=== PATIENT | female | born 1960 | race Caucasian/White ===

== ENCOUNTER 2021-11-16 21:52 | Inpatient (IN) | payer MEDICAID ==
[~2021-11-16] VITALS: Ht 162.6 cm; Wt 78.4 kg
[2021-11-16] MEDS ORDERED: SODIUM CHLORIDE 0.9% 1,000 ML IV ONE ×2 (22:30→23:00)
[2021-11-16 22:56] LABS: Basophils # (auto) 0 10 ^3/uL (0-0.2); Basophils % (auto) 0.3 % (0.0-2.0); Eosinophils # (auto) 0.1 10 ^3/uL (0-0.8); Eosinophils % (auto) 0.8 % (0.0-7.0); Hematocrit 44.9 % (36.0-46.0); Hemoglobin 15.1 g/dL (12.2-16.2); Lymphocytes # (auto) 1.5 10 ^3/uL (0.4-5.4); Lymphocytes % (auto) 10.5 % (10.0-50.0); Mean Corpuscular Hemoglobin 30.2 pg (28.0-32.0); Mean Corpuscular Hgb Conc. 33.6 g/dL (32.0-36.0); Monocytes # (auto) 1.6 10 ^3/uL (0-1.3); Monocytes % (auto) 11.3 % (0.0-12.0); Neutrophils # (auto) 11.1 10 ^3/uL (1.6-8.6); Neutrophils % (auto) 77.1 % (37.0-80.0); Red Blood Cells 4.99 10^6/uL (4.0-5.20); Red Cell Distribution Width 13.4 % (11.8-14.3); White Blood Cell 14.4 10^3/uL (4.4-10.8)
[2021-11-16 22:59] LABS: Albumin 3.2 g/dL (3.4-5.0); Calcium 10.9 mg/dL (8.5-10.1); Potassium 4.4 mmol/L (3.5-5.1)
[2021-11-16 23:02] LABS: BUN/Creatinine Ratio 15.9; Bilirubin, Total 0.6 mg/dL (0.2-1.0); Total Protein 8.6 g/dL (6.4-8.2)
[2021-11-16 23:06] LABS: Lactic Acid w/Reflex 2.1 mmol/L (0.4-2.0)
[2021-11-17 00:04] LABS: Urine Bacteria NONE SEEN /hpf (None Seen); Urine Blood Negative /uL (Negative); Urine Hyaline Cast MANY /lpf (0 - 2); Urine Mucus FEW (None Seen); Urine Specific Gravity 1.028 (1.001-1.035); Urine WBC 11 /hpf (0 - 5)
[2021-11-17] MEDS ORDERED: IPRATROPIUM BROM 0.5 MG/2.5ML INH SOL ONE (00:07)
[2021-11-17] MEDS ORDERED: ALBUTEROL SULF 2.5 MG/0.5ML(0.5%) NEB SOLN ONE (00:07)
[2021-11-17] MEDS ORDERED: methylPREDNISolone SOD SUCC 125 MG/2 ML VL IV ONE (01:15)
[2021-11-17] MEDS: IPRATROPIUM BROM 0.5 MG/2.5ML INH SOL NEB PRN ×3 (01:28→01:30)
[2021-11-17] MEDS: ALBUTEROL SULF 2.5 MG/0.5ML(0.5%) NEB SOLN NEB PRN ×2 (01:29→01:30)
[2021-11-17] MEDS ORDERED: ASPirin 325 MG TAB PO ONE (01:45)
[2021-11-17] MEDS ORDERED: ACETAMINOPHEN 325 MG TAB PO PRN (03:00)
[2021-11-17] MEDS ORDERED: HYDROcodone-ACET 5/325MG TAB PO PRN (03:00)
[2021-11-17 03:42] VITALS: BP 116/82
[2021-11-17] MEDS: HEPARIN SODIUM (PORCINE) 5000 UNITS/ML 1ML VIAL SC SCH ×3 (03:58→21:50)
[2021-11-17 04:06] LABS: BUN/Creatinine Ratio 21.1; Calcium 9.5 mg/dL (8.5-10.1); Potassium 4.1 mmol/L (3.5-5.1)
[2021-11-17] MEDS: IPRATROPIUM BROM 0.5 MG/2.5ML INH SOL NEB SCH ×3 (05:43→18:50)
[2021-11-17] MEDS: ALBUTEROL SULF 2.5 MG/0.5ML(0.5%) NEB SOLN NEB SCH ×3 (05:43→18:49)
[2021-11-17] MEDS: PIPERACILLIN-TAZOB 3.375GM 100 ML IV SCH ×3 (05:48→23:39)
[2021-11-17 06:42] LABS: BUN/Creatinine Ratio 21.7; Calcium 9.6 mg/dL (8.5-10.1); Potassium 4.2 mmol/L (3.5-5.1)
[2021-11-17] MEDS ORDERED: MORPHINE SULFATE INJ 2 MG/ml SYRG IV PRN (08:00)
[2021-11-17] MEDS ORDERED: DEXTROSE (50%) 50ML SYRG IV PRN (08:00)
[2021-11-17] MEDS ORDERED: NITROGLYCERIN 0.4 MG SL TAB SL PRN (08:00)
[2021-11-17] MEDS: ASPirin 81 mg TAB PO SCH (11:24)
[2021-11-17] MEDS: ACCU-CHEK COMFORT CURVE STRIP VI SCH ×3 (11:47→21:50)
[2021-11-17] MEDS: InsuLIN REG 1unit/0.01ml Soln (100units/ml) SC SCH ×3 (11:56→21:59)
[2021-11-17] MEDS: methylPREDNISolone SOD SUCC 40 MG/ML VL IV SCH ×2 (16:43→21:21)
[2021-11-17 17:40] VITALS: BP 171/77
[2021-11-17] MEDS ORDERED: LABETALOL HCL 5 MG/ML 4ML SYRINGE IV ONE (19:00)
[2021-11-17] MEDS ORDERED: diphenhdrAMINE HCL 50 MG/1 ML VL IV ONE (22:15)
[2021-11-18] VITALS (7 sets, daily range): BP systolic 138–178; BP diastolic 71–90
[2021-11-18 04:56] LABS: Basophils # (auto) 0 10 ^3/uL (0-0.2); Eosinophils # (auto) 0 10 ^3/uL (0-0.8); Hematocrit 34.7 % (36.0-46.0); Hemoglobin 11.7 g/dL (12.2-16.2); Lymphocytes # (auto) 0.7 10 ^3/uL (0.4-5.4); Lymphocytes % (auto) 5.4 % (10.0-50.0); Mean Corpuscular Hemoglobin 30.1 pg (28.0-32.0); Mean Corpuscular Hgb Conc. 33.7 g/dL (32.0-36.0); Mean Corpuscular Volume 89.3 fL (80.0-100.0); Monocytes # (auto) 0.9 10 ^3/uL (0-1.3); Monocytes % (auto) 7.3 % (0.0-12.0); Neutrophils # (auto) 10.7 10 ^3/uL (1.6-8.6); Neutrophils % (auto) 87.3 % (37.0-80.0); Red Blood Cells 3.88 10^6/uL (4.0-5.20); Red Cell Distribution Width 13.4 % (11.8-14.3); White Blood Cell 12.2 10^3/uL (4.4-10.8)
[2021-11-18 05:13] LABS: BUN/Creatinine Ratio 31.1; Calcium 10.7 mg/dL (8.5-10.1); Potassium 4.7 mmol/L (3.5-5.1)
[2021-11-18] MEDS: methylPREDNISolone SOD SUCC 40 MG/ML VL IV SCH ×3 (05:50→21:47)
[2021-11-18] MEDS: InsuLIN REG 1unit/0.01ml Soln (100units/ml) SC SCH ×4 (06:07→22:13)
[2021-11-18] MEDS: ACCU-CHEK COMFORT CURVE STRIP VI SCH ×4 (06:07→22:12)
[2021-11-18] MEDS: PIPERACILLIN-TAZOB 3.375GM 100 ML IV SCH ×3 (06:07→21:47)
[2021-11-18] MEDS: IPRATROPIUM BROM 0.5 MG/2.5ML INH SOL NEB SCH ×3 (07:32→18:35)
[2021-11-18] MEDS: ALBUTEROL SULF 2.5 MG/0.5ML(0.5%) NEB SOLN NEB SCH ×3 (07:32→18:35)
[2021-11-18] MEDS: ASPirin 81 mg TAB PO SCH (09:35)
[2021-11-18] MEDS: HEPARIN SODIUM (PORCINE) 5000 UNITS/ML 1ML VIAL SC SCH ×2 (09:40→21:48)
[2021-11-18] MEDS ORDERED: METF-371 PO (11:43)
[2021-11-18] MEDS ORDERED: LISI20TA28 PO (11:43)
[2021-11-18] MEDS ORDERED: ZOLPIDEM TARTRATE 5 MG TAB PO PRN (13:00)
[2021-11-18] MEDS ORDERED: LACTULOSE 20Gm/30ML SOLN PO PRN (13:00)
[2021-11-18] MEDS ORDERED: LISINOPRIL 20 MG TAB PO ONE (16:30)
[2021-11-18] MEDS ORDERED: cloNIDine HCL 0.1 MG TAB PO PRN (16:30)
[2021-11-18] MEDS: FLUTICASONE PROP NASAL SPR 0.05 % (50MCG) 16GM EACHNOSTRI SCH (22:00)
[2021-11-18] MEDS ORDERED: FAMOTIDINE 20 MG TAB PO SCH (22:00)
[2021-11-18] MEDS ORDERED: LABETALOL HCL 5 MG/ML 4ML SYRINGE IV ONE (23:00)
[2021-11-19] MEDS ORDERED: LABETALOL HCL 5 MG/ML 4ML SYRINGE IV ONE (00:15)
[2021-11-19] MEDS: IPRATROPIUM BROM 0.5 MG/2.5ML INH SOL NEB SCH ×3 (00:26→11:48)
[2021-11-19] MEDS: ALBUTEROL SULF 2.5 MG/0.5ML(0.5%) NEB SOLN NEB SCH ×3 (00:26→11:48)
[2021-11-19 05:00] VITALS: BP 158/84
[2021-11-19] MEDS: PIPERACILLIN-TAZOB 3.375GM 100 ML IV SCH ×2 (06:34→14:00)
[2021-11-19] MEDS: methylPREDNISolone SOD SUCC 40 MG/ML VL IV SCH ×2 (06:34→14:00)
[2021-11-19] MEDS: ACCU-CHEK COMFORT CURVE STRIP VI SCH ×2 (06:34→11:38)
[2021-11-19] MEDS: InsuLIN REG 1unit/0.01ml Soln (100units/ml) SC SCH ×2 (06:37→11:41)
[2021-11-19 07:00] VITALS: BP 148/82
[2021-11-19 07:38] VITALS: BP 146/82
[2021-11-19 08:29] VITALS: BP 146/82
[2021-11-19] MEDS: FLUTICASONE PROP NASAL SPR 0.05 % (50MCG) 16GM EACHNOSTRI SCH (09:09)
[2021-11-19] MEDS: ASPirin 81 mg TAB PO SCH (09:10)
[2021-11-19] MEDS: HEPARIN SODIUM (PORCINE) 5000 UNITS/ML 1ML VIAL SC SCH (09:13)
[2021-11-19] MEDS ORDERED: LISINOPRIL 20 MG TAB PO SCH (10:00)
[2021-11-19 10:51] LABS: BUN/Creatinine Ratio 25.7; Calcium 10.6 mg/dL (8.5-10.1); Potassium 4.5 mmol/L (3.5-5.1)
[2021-11-19 12:34] VITALS: BP 147/82
[2021-11-19] MEDS ORDERED: ALB5IS NEB (13:20)
[2021-11-19] MEDS ORDERED: FLUT50SP EACHNOSTRI (13:20)
[2021-11-19] MEDS ORDERED: AZIT500T66 PO (13:20)
[2021-11-19] MEDS ORDERED: PRED20TA2 PO (13:20)
[2021-11-19] MEDS ORDERED: IPR002IS NEB (13:20)
[2021-11-19 14:12] VITALS: BP 147/82
== END 2021-11-19 15:49 | disposition home or self-care (01) | DRG 133 ==
LOC: EDBD 21:52 → ER 21:52 → TELE 11-17 07:58 → TELE-WESTW 11-17 17:20
PROVIDERS: ADMIT Nurse Practitioner Family; ATTEND Internal Medicine
DX: J96.01 Acute respiratory failure with hypoxia (principal); N17.9 Acute kidney failure, unspecified; J44.0 Chronic obstructive pulmonary disease with (acute) lower respiratory infection; I95.9 Hypotension, unspecified; J45.901 Unspecified asthma with (acute) exacerbation; J44.1 Chronic obstructive pulmonary disease with (acute) exacerbation; E11.22 Type 2 diabetes mellitus with diabetic chronic kidney disease; Z99.81 Dependence on supplemental oxygen; E11.9 Type 2 diabetes mellitus without complications; J20.9 Acute bronchitis, unspecified; F17.210 Nicotine dependence, cigarettes, uncomplicated; H53.8 Other visual disturbances; R77.8 Other specified abnormalities of plasma proteins; I12.9 Hypertensive chronic kidney disease with stage 1 through stage 4 chronic kidney disease, or unspecified chronic kidney disease; N18.9 Chronic kidney disease, unspecified; Z20.822 Contact with and (suspected) exposure to COVID-19; Z79.4 Long term (current) use of insulin
CPT/HCPCS: 36415; 36600; 71045; 78582; 80048; 80053; 80061; 81001; 82805; 82962; 83605; 84484; 85025; 85379; 87040; 93005; 93306; 93970; 94010; 94640; 96361; 96372; 96374; G0378; J1815; J2543

== ENCOUNTER 2024-07-10 17:52 | Inpatient (IN) | payer MEDICAID ==
[~2024-07-10] VITALS: Ht 149.9 cm; Wt 75.9 kg
[~2024-07-10 17:52] MED LIST: ALB5IS NEB; AZIT500T66 PO; FLUT50SP EACHNOSTRI; IPR002IS NEB; LISI20TA56 PO; METF-371 PO; PRED20TA2 PO
--- NOTE | 2024-07-10 18:58 | ECG ---
[facility] Test Date: 2024-07-10 Test Time: 18:32:26 Pat Name: TAYLA HERNÁNDEZ Department: E Room: [facility] Gender: F Parts Counter Specialist: II : 1960 Requested By: AJITH COON Order Number: [id number] Reading MD: Errol Flynn Measurements Intervals [place] Rate: 78 P: 41 HI: 171 QRS: -20 QRSD: 77 T: 63 QT: 358 QTc: 408 Interpretive Statements Sinus rhythm Borderline left axis deviation Low voltage, precordial leads Electronically Signed On 07-19-2024 14:20:47 PST by Errol Flynn Please click the below link to view image of tracing.
[2024-07-10 19:33] LABS: Urine Bacteria None Seen /hpf (None Seen)
--- NOTE | 2024-07-10 19:34 | ED.PDOC ---
History of Present Illness HPI Comments 63F presents to the ER w/ no prior Hx associated to the c/c of ABD pain. Pt reports that she has been having RUQ pain which radiates to the back for 1 month but the pain comes and goes, worsening w/ food. PMHx of DM, HTN and Asthma. Denies chills, fever, N/V/D, SOB, CPor other associated symptom's, modifiers, or recent injuries or sick contact at this time. Chief Complaint: Abdominal Pain Time Seen by MD: 19:00 Primary Care Provider: DOMINGAK Reviewed Notes: Nurses Notes, Medications, Allergies Allergies: Coded Allergies: NO KNOWN ALLERGIES (Unverified , 11/16/21) Home Meds Active Scripts Prednisone (Prednisone) 20 Mg Tab, 20 MG PO BIDBRS, #10 MG Prov:LAWANDA AUSTIN MD 11/19/21 Azithromycin (Azithromycin) 500 Mg Tab, 500 MG PO DAILY, #5 TAB Prov:LAWANDA AUSTIN MD 11/19/21 Ipratropium [place] (Ipratropium [place]) 0.02 % Keiko, 0.5 MG NEB Q6HR PRN, #30 VIAL Prov:LAWANDA AUSTIN MD 11/19/21 Fluticasone Propionate (Nasal) (Fluticasone Propionate) 50 Mcg/Act Spr, 50 MCG E ACHNOSTRI Q12HR, #1 SPRAY Prov:LAWANDA AUSTIN MD 11/19/21 Albuterol Sulfate (Ventolin) 2.5 Mg/0.5 Ml Nb, 2.5 MG NEB Q6HR PRN, #30 INH Prov:LAWANDA AUSTIN MD 11/19/21 Reported Medications Lisinopril (Lisinopril) 20 Mg Tab, 20 MG PO DAILY for 30 Days, MG 11/18/21 Metformin Hydrochloride (Metformin Hcl) 850 Mg Tab, 1 TAB PO BID, #60 TAB 5 Refills 11/18/21 Information Source: Patient Mode of Arrival: Ambulatory Severity: Moderate Timing: Weeks Duration: Since onset Prehospital treatment: None Past Medical History PAST MEDICAL HISTORY: Asthma, DM, HTN Surgical History: Denies all surgeries PATENT LAWYER History: No Pertinent PATENT LAWYER History Family History Family History: Reviewed,noncontributory to illness, Unknown Social History Smoker: Non-Smoker Alcohol: Denies ETOH Use Drugs: Denies Drug Use Lives In: Home Constitutional: denies: chills, diaphoresis, fatigue, fever, malaise, sweats, weakness, others EENTM: denies: blurred vision, double vision, ear bleeding, ear discharge, ear drainage, ear pain, ear ringing, eye pain, eye redness, hearing loss, mouth pain, mouth swelling, nasal discharge, nose bleeding, nose congestion, nose pain, photophobia, tearing, throat pain, throat swelling, voice changes, others Respiratory: denies: cough, hemoptysis, orthopnea, SOB at rest, shortness of breath, SOB with excertion, stridor, wheezing, others Cardiovascular: denies: chest pain, dizzy spells, diaphoresis, Dyspnea on exertion, edema, irregular heart beat, left arm pain, lightheadedness, palpitations, PND, syncope, others Gastrointestinal: reports: abdominal pain; denies: abdomen distended, blood streaked bowels, constipated, diarrhea, dysphagia, difficulty swallowing, hematemesis, melena, nausea, poor appetite, poor fluid intake, rectal bleeding, rectal pain, vomiting, others Genitourinary: denies: abnormal vagina bleeding, burning, dyspareunia, dysuria, flank pain, frequency, hematuria, incontinence, pain, , vagina discharge, urgency, others Neurological: denies: dizziness, fainting, headache, left sided numbness, left sided weakness, numbness, paresthesia, pre-existing deficit, right sided numbness, right sided weakness, seizure, speech problems, tingling, tremors, weakness, others Musculoskeletal: denies: back pain, gout, joint pain, joint swelling, muscle pain, muscle stiffness, neck pain, others Integumetry: denies: bruises, change in color, change in hair/nails, dryness, laceration, lesions, lumps, rash, wounds, others Allergic/Immunocompromised: denies: Difficulty Healing, Frequent Infections, Hives, Itching, others Hematologic/Lymphatic: denies: anemia, blood clots, easy bleeding, easy bruising, swollen glands, others Endocrine: denies: excessive hunger, excessive sweating, excessive thirst, excessive urination, flushing, intolerance to cold, intolerance to heat, unexplained weight gain, unexplained weight loss, others Psychiatric: denies: anxiety, bipolar disorder, depression, hopeless, panic disorder, schizophrenia, sleepless, suicidal, others All Other Systems: Reviewed and Negative Physical Exam Exam Comments left epigastric area is tender General Appearance: No Apparent Distress, Normal HEENT: Normal ENT Inspection, Pharynx Normal, TMs Normal Neck: Full Range of Motion, Non-Tender, Normal, Normal Inspection Respiratory: Chest Non-Tender, Lungs Clear, No Accessory Muscle Use, No Respiratory Distress, Normal Breath Sounds Cardiovascular: No Edema, No JVD, No Murmur, No Gallop, Normal Peripheral Pulses, Regular Rate/Rhythm Breast Exam: Deferred Gastrointestinal: No Organomegaly, Non Tender, No Pulsatile Mass, Normal Bowel Sounds, Soft Genitalia: Deferred Pelvic: Deferred Rectal: Deferred Extremities: No calf tenderness, Normal capillary refill, Normal inspection, Normal range of motion, Non-tender, No pedal edema Musculoskeletal : Apperance: Normal Neurologic: Alert, double surface operator II-XII nml as Tested, No Motor Deficits, Normal Affect, Normal Mood, No Sensory Deficits Cerebellar Function: Normal Reflexes: Normal Skin: Dry, Normal Color, Warm Lymphatic: No Adenopathy Was a procedure done? Was a procedure done?: No Differential Dx Considerations may include: biliary colic, pancreatitis, gastritis, sbo, colitis X-Ray, Labs, Meds, VS Vital Signs Date Time Temp Pulse Resp B/P (MAP) Pulse Ox O2 Delivery O2 Flow Rate FiO2 07/10/24 21:25 99.0 73 18 122/72 (89) 96 99.0 07/10/24 21:21 73 16 122/72 07/10/24 20:54 78 22 154/75 07/10/24 20:23 78 22 99 Room Air* 0 21 07/10/24 20:21 99.0 78 22 154/77 (102) 99 99.0 07/10/24 18:39 78 07/10/24 18:29 97.8 76 18 111/70 (84) 96 Lab Test 07/10/24 19:47 07/10/24 18:25 Range/Units White Blood Count 10.3 4.4-10.8 10^3/uL Red Blood Count 4.17 4.0-5.20 10^6/uL Hemoglobin 12.9 12.2-16.2 g/dL Hematocrit 38.5 36.0-46.0 % Mean Corpuscular Volume 92.4 80.0-100.0 fL Mean Corpuscular Hemoglobin 31.0 28.0-32.0 pg Mean Corpuscular Hemoglobin Concent 33.5 32.0-36.0 g/dL Red Cell Distribution Width 14.0 11.8-14.3 % Platelet Count 228 140-450 10^3/uL Mean Platelet Volume 7.6 6.9-10.8 fL Neutrophils (%) (Auto) 61.3 37.0-80.0 % Lymphocytes (%) (Auto) 22.3 10.0-50.0 % Monocytes (%) (Auto) 12.1 H 0.0-12.0 % Eosinophils (%) (Auto) 3.6 0.0-7.0 % Basophils (%) (Auto) 0.7 0.0-2.0 % Neutrophils # (Auto) 6.3 1.6-8.6 10 ^3/uL Lymphocytes # (Auto) 2.3 0.4-5.4 10 ^3/uL Monocytes # (Auto) 1.2 0-1.3 10 ^3/uL Eosinophils # (Auto) 0.4 0-0.8 10 ^3/uL Basophils # (Auto) 0.1 0-0.2 10 ^3/uL Nucleated Red Blood Cells 0.0 % Sodium Level 138 136-145 mmol/L Potassium Level 4.8 3.5-5.1 mmol/L Chloride Level 106 98-107 mmol/L Carbon Dioxide Level 23 20-31 mmol/L Anion Gap 9 5-15 Blood Urea Nitrogen 44 H 9-23 mg/dL Creatinine 1.80 H 0.550-1.02 mg/dL Glomerular Filtration Rate Calc 31 >90 mL/min BUN/Creatinine Ratio 24.4 H 10.0-20.0 Serum Glucose 104 74-106 mg/dL Calcium Level 11.5 H 8.7-10.4 mg/dL Total Bilirubin 0.3 0.2-1.0 mg/dL Aspartate Amino Transferase (AST) 26 13-40 U/L Alanine Aminotransferase (ALT) 37 7-40 U/L Alkaline Phosphatase 144 H 46-116 U/L Total Protein 7.8 5.7-8.2 g/dL Albumin 4.7 3.2-4.8 g/dL Lipase 32 12-53 U/L Urine Color Yellow Yellow Urine Clarity Clear Clear Urine pH 5.0 5.0-9.0 Urine Specific [place] 1.017 1.001-1.035 Urine Protein Trace H Negative Urine Ketones Negative Negative Urine Blood Negative Negative /uL Urine Nitrite Negative Negative Urine Bilirubin Negative Negative Urine Urobilinogen Normal Negative mg/dL Urine Leukocyte Esterase 2+ Negative /uL Urine RBC 3 0 - 4 /hpf Urine WBC 20 0 - 5 /hpf Urine Squamous Epithelial Cells Few <5 /hpf Urine Bacteria None seen None Seen /hpf Urine Hyaline Casts Few 0 - 2 /lpf Urine Mucus Few None Seen Urine Glucose 2+ H Normal mg/dL Current Medications Medications (Trade) Dose Ordered Sig/Yon Route Start Time Stop Time Status Last Admin Morphine Sulfate 2 mg ONCE ONCE IV 07/10/24 19:15 07/10/24 19:16 DC 07/10/24 20:54 Ondansetron HCl (Zofran) 4 mg ONCE ONCE IV 07/10/24 19:15 07/10/24 19:16 DC 07/10/24 20:55 Time of 1ST Reevaluation: 19:30 Reevaluation 1ST: Unchanged Time of 2ND Reevaluation: 20:34 Reevaluation 2ND: pt eloped Patient Education/Counseling: Diagnosis, Treatment, Prognosis Family Education/Counseling: No Family Present Additional Information - I reviewed the following notes from patient's past medical encounters:11/16/21 - The following tests were ordered, and results were reviewed by me: PHA, LAB, US, EKG - I reviewed and agreed with the following test results read by other provider: US - I discussed treatments and results with medical personnel and: (consultants, family) i suspect biliary colic. an US was ordered. however, pt eloped before this can be done Departure 1 Departure Time of Disposition: 20:34 Impression: Primary Impression: Biliary colic symptom Additional Impressions: Renal insufficiency UTI (urinary tract infection) Qualified Codes: N30.00 - Acute cystitis without hematuria Disposition: HOME / SELF CARE / HOMELESS Condition: Good e-Prescriptions Cephalexin Monohydrate (Cephalexin) 500 Mg Tab 1 TAB PO QID, #40 TAB Prov: AJITH COON MD 07/10/24 Pantoprazole Sodium Sesquihydr (Protonix) 40 Mg Tab 40 MG PO DAILY, #30 TAB Prov: AJITH COON MD 07/10/24 Discharged With: Self Critical Care Note Critical Care Time?: No Stability Stability form required: No I personally scribed for AJITH COON MD ([email or web address]) on 07/10/24 at 19:34. Electronically submitted by Pierre Keller ([email or web address]). AJITH COON MD Jul 10, 2024 19:34
[2024-07-10 19:57] LABS: Urine Blood Negative /uL (Negative); Urine Clarity Clear (Clear); Urine Color Yellow (Yellow); Urine Hyaline Cast FEW /lpf (0 - 2); Urine Mucus FEW (None Seen); Urine Protein, UAD TRACE (Negative); Urine Specific Gravity 1.017 (1.001-1.035); Urine Squamous Epithelial Cell FEW /hpf (<5); Urine Urobilinogen Normal (Negative); Urine WBC 20 /hpf (0 - 5)
[2024-07-10 20:08] LABS: Basophils # (auto) 0.1 10 ^3/uL (0-0.2); Basophils % (auto) 0.7 % (0.0-2.0); Eosinophils # (auto) 0.4 10 ^3/uL (0-0.8); Eosinophils % (auto) 3.6 % (0.0-7.0); Hematocrit 38.5 % (36.0-46.0); Hemoglobin 12.9 g/dL (12.2-16.2); Lymphocytes # (auto) 2.3 10 ^3/uL (0.4-5.4); Lymphocytes % (auto) 22.3 % (10.0-50.0); Mean Corpuscular Hgb Conc. 33.5 g/dL (32.0-36.0); Mean Corpuscular Volume 92.4 fL (80.0-100.0); Monocytes # (auto) 1.2 10 ^3/uL (0-1.3); Monocytes % (auto) 12.1 % (0.0-12.0); Neutrophils # (auto) 6.3 10 ^3/uL (1.6-8.6); Neutrophils % (auto) 61.3 % (37.0-80.0); Platelet Count (auto) 228 10^3/uL (140-450); Red Blood Cells 4.17 10^6/uL (4.0-5.20); White Blood Cell 10.3 10^3/uL (4.4-10.8)
[2024-07-10 20:23] VITALS: PULSE 78; RESP 22; O2SAT 99
[2024-07-10 20:26] LABS: Alanine Aminotransferase 37 U/L (7-40); Albumin 4.7 g/dL (3.2-4.8); Alkaline Phosphatase 144 U/L (46-116); Anion Gap 9 (5-15); Aspartate Aminotransferase 26 U/L (13-40); BUN/Creatinine Ratio 24.4 (10.0-20.0); Bilirubin, Total 0.3 mg/dL (0.2-1.0); Blood Urea Nitrogen 44 mg/dL (9-23); Calcium 11.5 mg/dL (8.7-10.4); Carbon Dioxide 23 mmol/L (20-31); Chloride 106 mmol/L (98-107); Glucose 104 mg/dL (74-106); Lipase 32 U/L (12-53); Potassium 4.8 mmol/L (3.5-5.1); Sodium 138 mmol/L (136-145); Total Protein 7.8 g/dL (5.7-8.2)
[2024-07-10] MEDS: MORPHINE SULFATE INJ 2 MG/ml SYRG IV ONE (20:54)
[2024-07-10] MEDS: ONDANSETRON HCL 4 MG/2 ML VIAL IV ONE (20:55)
--- NOTE | 2024-07-10 21:03 | DVH ---
INDICATION: ruq pain TECHNIQUE: Multiple real-time sonographic images of the abdomen were obtained. COMPARISON: None FINDINGS: Liver is homogenous in echogenicity. The liver measures 14.3 cm. No intrahepatic biliary ductal dilatation is noted. The gallbladder wall measures 0.3 cm and is unremarkable. No gallstones or gallbladder sludge. No pericholecystic fluid or edema. The common duct measures 0.4 cm and is unremarkable. The right kidney measures 6.7 cm. No hydronephrosis. The pancreas is not well visualized due to obscuration from bowel gas. The visualized portions of the IVC and aorta are grossly unremarkable. IMPRESSION: 1. No cholelithiasis or cholecystitis. No acute findings identified.
[2024-07-10] MEDS ORDERED: CEPH500T PO (21:30)
[2024-07-10] MEDS ORDERED: PANT40TA2 PO (21:30)
--- NOTE | 2024-07-10 21:59 | DVHHPRES ---
History of Present Illness Resident Creating Document: ESTEFANY ROGERS RESIDENT History of Present Illness This is a 63-year-old female past medical history of bronchial asthma, hypertension, type 2 diabetes mellitus presented to the ED with a chief complaint of right upper abdominal pain with nausea and vomiting for 2 days prio r to this admission. The patient states that right upper abdominal pain started 1 month ago, intermittent in nature, 7 / 10, radiate diffusely through the abdomen sometimes to the right shoulder aggravated with fatty meal or sometimes just after meal without any relieving factor and associated with nausea and vomiting. She also mentioned that for last 2 days abdominal pain getting worse and she had few episodes of vomiting and currently she felt nauseous that prompted this visit. The patient also complains of frequency and discomfort during urination and she had an UTI 2 years ago currently feeling the same symptoms as she had before. The patient denies chest pain, shortness of breath, dizziness, hematuria, sick hematochezia, hemoptysis or any change bowel and bladder habit. Past Medical History Bronchial asthma, hypertension, type 2 diabetes mellitus Past Surgical History , cataract surgery Family History None Past Social History Lives with daughter. Remote smoking history, occasional drinker and never tried any drugs. Review of Systems Constitutional: No: Fever, Chills, Sweats, Weakness, Malaise, Other Eyes: No: Pain, Vision change, Conjunctivae inflammation, Eyelid inflammation, Other, Redness ENT: No: Ear pain, Ear discharge, Nose pain, Nose discharge, Nose congestion, Mouth pain, Mouth swelling, Throat pain, Throat swelling, Other Respiratory: No: Cough, Dry, Shortness of breath, SOB with excertion, Wheezing, Hemoptysis, Pleuritic Pain, Sputum, Wheezing, Other Cardiovascular: No: Chest Pain, Palpitations, Orthopnea, Paroxysmal Noc. Dyspnea, Edema, Lt Headedness, Other Gastrointestinal: Nausea, Vomiting, Abdominal Pain; No: Diarrhea, Constipation, Melena, Hematochezia, Other Genitourinary: No Dysuria, No Frequency, No Incontinence, No Hematuria, No Retention, No Other Musculoskeletal: No: other, neck pain, shoulder pain, arm pain, back pain, hand pain, leg pain, foot pain Skin: No: Rash, Lesions, Jaundice, Bruising, Other Neurological: No: Weakness, Numbness, Incoordination, Change in speech, Confusion, Seizures, Other Allergies: Coded Allergies: NO KNOWN ALLERGIES (Unverified , 11/16/21) Exam Vital Signs Vital Signs Date Time Temp Pulse Resp B/P (MAP) Pulse Ox O2 Delivery O2 Flow Rate FiO2 07/10/24 21:25 99.0 73 18 122/72 (89) 96 99.0 07/10/24 20:23 Room Air* 0 21 Exam Physical examination: General Appearance: Alert, Oriented X3, Cooperative, No acute distress HEENT: Atraumatic, PERRLA, EOMI, Mucous membrane moist/pink Respiratory: Clear to auscultation, Normal air movement Cardiovascular: Regular rate, Normal S1, Normal S2, No murmurs, no chest wall tenderness Abdominal: Normal bowel sounds, Soft, No tenderness, No hepatospenomegaly, No masses Extremities: No clubbing, No cyanosis, No edema, Normal pulses, No tenderness/swelling Skin: No rashes, No breakdown, No significant lesion Neuro: Normal gait, Normal speech, Strength at 5/5 X4 ext, Normal tone, Sensation intact, grossly intact cranial nerves. Psych/Mental Status: Mental status NL, Mood NL Labs/Xrays Labs Test 07/10/24 19:47 07/10/24 18:25 Range/Units White Blood Count 10.3 4.4-10.8 10^3/uL Red Blood Count 4.17 4.0-5.20 10^6/uL Hemoglobin 12.9 12.2-16.2 g/dL Hematocrit 38.5 36.0-46.0 % Mean Corpuscular Volume 92.4 80.0-100.0 fL Mean Corpuscular Hemoglobin 31.0 28.0-32.0 pg Mean Corpuscular Hemoglobin Concent 33.5 32.0-36.0 g/dL Red Cell Distribution Width 14.0 11.8-14.3 % Platelet Count 228 140-450 10^3/uL Mean Platelet Volume 7.6 6.9-10.8 fL Neutrophils (%) (Auto) 61.3 37.0-80.0 % Lymphocytes (%) (Auto) 22.3 10.0-50.0 % Monocytes (%) (Auto) 12.1 H 0.0-12.0 % Eosinophils (%) (Auto) 3.6 0.0-7.0 % Basophils (%) (Auto) 0.7 0.0-2.0 % Neutrophils # (Auto) 6.3 1.6-8.6 10 ^3/uL Lymphocytes # (Auto) 2.3 0.4-5.4 10 ^3/uL Monocytes # (Auto) 1.2 0-1.3 10 ^3/uL Eosinophils # (Auto) 0.4 0-0.8 10 ^3/uL Basophils # (Auto) 0.1 0-0.2 10 ^3/uL Nucleated Red Blood Cells 0.0 % Sodium Level 138 136-145 mmol/L Potassium Level 4.8 3.5-5.1 mmol/L Chloride Level 106 98-107 mmol/L Carbon Dioxide Level 23 20-31 mmol/L Anion Gap 9 5-15 Blood Urea Nitrogen 44 H 9-23 mg/dL Creatinine 1.80 H 0.550-1.02 mg/dL Glomerular Filtration Rate Calc 31 >90 mL/min BUN/Creatinine Ratio 24.4 H 10.0-20.0 Serum Glucose 104 74-106 mg/dL Calcium Level 11.5 H 8.7-10.4 mg/dL Total Bilirubin 0.3 0.2-1.0 mg/dL Aspartate Amino Transferase (AST) 26 13-40 U/L Alanine Aminotransferase (ALT) 37 7-40 U/L Alkaline Phosphatase 144 H 46-116 U/L Total Protein 7.8 5.7-8.2 g/dL Albumin 4.7 3.2-4.8 g/dL Lipase 32 12-53 U/L Urine Color Yellow Yellow Urine Clarity Clear Clear Urine pH 5.0 5.0-9.0 Urine Specific [place] 1.017 1.001-1.035 Urine Protein Trace H Negative Urine Ketones Negative Negative Urine Blood Negative Negative /uL Urine Nitrite Negative Negative Urine Bilirubin Negative Negative Urine Urobilinogen Normal Negative mg/dL Urine Leukocyte Esterase 2+ Negative /uL Urine RBC 3 0 - 4 /hpf Urine WBC 20 0 - 5 /hpf Urine Squamous Epithelial Cells Few <5 /hpf Urine Bacteria None seen None Seen /hpf Urine Hyaline Casts Few 0 - 2 /lpf Urine Mucus Few None Seen Urine Glucose 2+ H Normal mg/dL Assessment/Plan Assessment/Plan Assessment and plan: # Intractable abdominal pain, nausea and vomiting - CT abdomen pelvis revealed normal study - Ultrasound gallbladder revealed no cholelithiasis or any sign of acute cholecystitis - Morphine 2 mg IV once - Ondansetron 4 mg IV once - Clear liquid diet. # CATHIE likely secondary to hemodynamically mediated/VMN # Hypercalcemia likely due to dehydration - IV normal saline at 100 mL/hours - Ordered urine sodium, urine creatinine and urine protein to calculate FENa - Monitor BMP # Acute cystitis - U/A demonstrated pyuria and patient is symptomatic - Ordered urine bacterial culture - IV ceftriaxone 1 gm daily. # Type 2 diabetes mellitus, HbA1C 7.1% - Mild sliding scale of insulin # PUD prophylaxis - Pepcid 20 mg p.o daily # DVT prophylaxis - Lovenox 30 mg SC daily Goal of care discussed with the patient for more than 20 minutes full code Plan discussed with Dr. Kaur Plan discussed with: Patient, Other My Orders Orders - ESTEFANY ROGERS Procedure Category Date Status Time Admit ADMIT 07/10/24 Transmitted 21:50 Ct Ab Pel Wo Con-No CT 07/10/24 Logged Oral Or Iv 21:53 Date of Service: Jul 10, 2024 Billing Provider: DANYELL KAUR MD Common Visit Codes: [id number] INP/OBS CARE (HIGH) ESTEFANY ROGERS Jul 10, 2024 21:59 DANYELL KAUR MD Jul 13, 2024 11:46
[2024-07-10] MEDS: SODIUM CHLORIDE 0.9% 1,000 ML IV ONE (22:15)
--- NOTE | 2024-07-10 22:44 | DVH ---
Exam: CT CT AB PEL WO CON-NO ORAL OR IV History: Abdominal pain Comparison Study: None available at time of dictation. TECHNIQUE: Multidetector CT of the abdomen was performed from lung bases to pubic symphysis. Imaging was performed without IV contrast. Axial, coronal and sagittal multiplanar reformats were obtained fr om the axial data set by the technologist. Radiation Dose Information: CT Dose: CTDI volume is 9.32 mGy. Dose-length product is 475.7 mGy*cm FINDINGS: Evaluation of solid organs is limited due to lack of intravenous contrast use. Findings: Lung Bases: No acute or significant lung base finding. Normal heart size. No pleural or pericardial effusion. Liver: The liver is normal in size. No focal lesions. Gallbladder and Biliary Tree: Unremarkable Spleen: Unremarkable Pancreas: The pancreas is grossly normal in appearance. Adrenal Glands: Unremarkable Kidneys: Kidneys are grossly normal without calculi or hydronephrosis. Bladder: Grossly unremarkable for degree of distention. Bowel: The stomach is grossly normal in appearance. Small bowel and colon are normal in caliber and d istribution. The appendix is not visualized; however, no secondary findings of acute appendicitis id entified. Ascites: Absent Lymphadenopathy: No mesenteric, retroperitoneal or periportal lymphadenopathy. Abdominal Wall and Mesentery: Unremarkable. Vasculature: The visualized abdominal aorta is normal in size and caliber. Evaluation of abdominal a nd pelvic vessels is limited due to lack of intravenous contrast. Pelvic Organs: Calcifications in the wall of the uterus most likely fibroids. Musculoskeletal: No aggressive focal bony lesions, acute fractures or dislocation. Soft tissues: Unremarkable IMPRESSION: 1. Calcifications in the wall of the uterus. 2. No CT findings of bowel obstruction 3. No nephrolithiasis or hydronephrosis. 4. No calcifications in the gallbladder. Radiation optimization: All CT scans at this facility use at least one of these dose optimization nury hniques: automated exposure control mA and/or kV adjustment per patient size (includes targeted exam s where dose is matched to clinical indication) or iterative reconstruction.
[2024-07-10 23:10] VITALS: RESP 16; O2SAT 97
[2024-07-10 23:21] VITALS: BP 119/68; PULSE 64; RESP 20; TEMP 98.6; O2SAT 98
[2024-07-10] MEDS ORDERED: EMPA1TAB PO (23:23)
[2024-07-10] MEDS ORDERED: HYDR12.59 PO (23:23)
[2024-07-10] MEDS ORDERED: ATOR-507 PO (23:23)
[2024-07-11 01:00] VITALS: BP 109/60; PULSE 54; RESP 17; TEMP 97.7; O2SAT 97
[2024-07-11] MEDS ORDERED: DEXTROSE (50%) 50ML SYRG IV PRN (03:45)
[2024-07-11] MEDS: HYDROcodone-ACET 5/325MG TAB PO ONE (04:47)
[2024-07-11 05:34] VITALS: BP 99/51; PULSE 68; RESP 20; TEMP 97.7; O2SAT 97
[2024-07-11] MEDS: InsuLIN REG 1unit/0.01ml Soln (100units/ml) SC SCH (06:42)
[2024-07-11] MEDS: ACCU-CHEK COMFORT CURVE STRIP VI SCH (06:42)
[2024-07-11 09:04] VITALS: BP 109/55; PULSE 75; RESP 17; TEMP 98.8; O2SAT 96
[2024-07-11] MEDS: FAMOTIDINE 20 MG TAB PO SCH (10:43)
[2024-07-11] MEDS: ASPirin-EC 81 mg tab PO SCH (10:44)
[2024-07-11] MEDS: cefTRIAXone 1GM/50ML D5W 50 ML IV SCH (10:44)
[2024-07-11] MEDS: ENOXAPARIN SOD 30 MG/0.3 ML SYRINGE SC SCH (10:44)
[2024-07-11 13:23] VITALS: BP 109/56; PULSE 82; RESP 17; TEMP 98.6; O2SAT 96
[2024-07-11] MEDS ORDERED: CYCL-611 PO (15:41)
[2024-07-11] MEDS ORDERED: CYCLOBENZAPRINE HCL 10 MG TAB PO PRN (15:45)
[2024-07-11 17:04] VITALS: BP 106/61; PULSE 66; RESP 18; TEMP 98; O2SAT 98
[2024-07-11] MEDS: LACTATED RINGER'S 500 ML IV ONE (18:08)
[2024-07-11 21:00] VITALS: BP 103/55; PULSE 66; RESP 19; TEMP 98.2; O2SAT 8
[2024-07-11] MEDS: ATORVASTATIN 20 MG TAB PO SCH (21:30)
[2024-07-11] MEDS: HYDROcodone-ACET 5/325MG TAB PO PRN (21:30)
[2024-07-12 01:00] VITALS: BP 109/60; PULSE 54; RESP 17; TEMP 97.7; O2SAT 97
[2024-07-12 05:00] VITALS: BP 111/53; PULSE 56; RESP 19; TEMP 98; O2SAT 97
[2024-07-12 09:06] VITALS: BP 143/53; PULSE 60; RESP 17; TEMP 98.6; O2SAT 98
[2024-07-12 10:12] LABS: Basophils # (auto) 0.1 10 ^3/uL (0-0.2); Basophils % (auto) 0.9 % (0.0-2.0); Eosinophils # (auto) 0.3 10 ^3/uL (0-0.8); Eosinophils % (auto) 4.4 % (0.0-7.0); Hematocrit 33.1 % (36.0-46.0); Lymphocytes # (auto) 1.4 10 ^3/uL (0.4-5.4); Lymphocytes % (auto) 20.8 % (10.0-50.0); Mean Corpuscular Hemoglobin 30.8 pg (28.0-32.0); Mean Corpuscular Hgb Conc. 33.1 g/dL (32.0-36.0); Mean Corpuscular Volume 92.9 fL (80.0-100.0); Monocytes # (auto) 0.9 10 ^3/uL (0-1.3); Monocytes % (auto) 12.8 % (0.0-12.0); Neutrophils # (auto) 4.2 10 ^3/uL (1.6-8.6); Neutrophils % (auto) 61.1 % (37.0-80.0); Platelet Count (auto) 208 10^3/uL (140-450); Red Blood Cells 3.56 10^6/uL (4.0-5.20); Red Cell Distribution Width 13.7 % (11.8-14.3); White Blood Cell 6.8 10^3/uL (4.4-10.8)
[2024-07-12 10:33] LABS: Alanine Aminotransferase 26 U/L (7-40); Albumin 3.7 g/dL (3.2-4.8); Alkaline Phosphatase 111 U/L (46-116); Anion Gap 7 (5-15); Aspartate Aminotransferase 20 U/L (13-40); BUN/Creatinine Ratio 25.8 (10.0-20.0); Carbon Dioxide 22 mmol/L (20-31); Potassium 4.4 mmol/L (3.5-5.1); Sodium 139 mmol/L (136-145)
[2024-07-12 10:34] LABS: Bilirubin, Total 0.3 mg/dL (0.2-1.0); Blood Urea Nitrogen 39 mg/dL (9-23); Calcium 10.5 mg/dL (8.7-10.4); Chloride 110 mmol/L (98-107); Glucose 110 mg/dL (74-106); Total Protein 6.2 g/dL (5.7-8.2)
[2024-07-12 13:57] VITALS: BP 135/83; PULSE 68; RESP 17; TEMP 98.9; O2SAT 98
--- NOTE | 2024-07-12 14:26 | DVHPNRES ---
Progress Note Date Seen: Jul 11, 2024 Resident Creating Document: MARTA MATOS RESIDENT Has the PT tested + for MRSA If YES, has PT been informed?: No Medical Necessity Reason Pt with a Central, PICC or Fol: No Subjective Review of Systems Patient is doing well no urgent surgical abdominal findings. Patient reports: No new complaints, Feels better Objective vital signs Vital Sign Date Time Temp Pulse Resp B/P (MAP) Pulse Ox O2 Delivery O2 Flow Rate FiO2 07/12/24 13:57 98.9 68 17 135/83 (100) 98 98.9 07/12/24 08:00 Room Air* 0 21 Total Intake and Output 07/11/24 07/11/24 07/12/24 15:00 23:00 07:00 Intake Total 50 ml 400 ml 400 ml Balance 50 ml 400 ml 400 ml medications Current Medications Medications Dose Ordered Sig/Yon Route Start Time Stop Time Status Last Admin Dose Admin Ceftriaxone Sodium 50 ml @ 100 mls/hr DAILY IV 07/11/24 10:00 07/12/24 10:43 100 MLS/HR Diagnostic Test (Pha) 1 strip ACHS 07/11/24 07:00 07/12/24 11:11 1 STRIP Insulin Human Regular ACHS SC 07/11/24 07:00 07/11/24 21:19 3 UNITS Dextrose 50 ml UD PRN IV 07/11/24 03:45 Aspirin 81 mg DAILY PO 07/11/24 10:00 07/12/24 10:43 81 MG Atorvastatin Calcium 40 mg HS PO 07/11/24 22:00 07/11/24 21:30 40 MG Famotidine 20 mg DAILY PO 07/11/24 10:00 07/12/24 10:43 20 MG Enoxaparin Sodium 30 mg DAILY SC 07/11/24 10:00 07/12/24 10:43 30 MG Acetaminophen/ Hydrocodone Bitart 1 tab Q6HPRN PRN PO 07/11/24 14:00 07/11/24 21:30 1 TAB Cyclobenzaprine HCl 5 mg Q8HPRN PRN PO 07/11/24 15:45 Examination: GENERAL:Normal, HEENT:Normal, NECK:Normal, LUNGS:Normal, CVS:Normal, ABDOMEN:Abnormal (Tenderness in the right paraumbilical area in the midclavicular line focal no other abdominal finding, BS positive soft no rigidity guarding noted), MSK:Normal, SKIN:Normal, NEURO:Normal, :Normal laboratory and microbiology Laboratory Tests 07/12/24 08:41 Test 07/12/24 08:41 Range/Units Serum Glucose 110 H 74-106 mg/dL Labs and/or images reviewed: Labs reviewed by me, Image(s) reviewed by me Problem List/Assessment/Plan Problem List/Assessment/Plan Hospitalization summary/ Assessment: A 63-year-old female with a history of bronchial asthma, hypertension, and type 2 diabetes mellitus presented to the ED with right upper abdominal pain, nausea, and vomiting for the past two days. The pain, which started a month ago, is intermittent, radiates to the right shoulder, and worsens after meals. She also reports urinary frequency and discomfort, similar to a past UTI. She denies chest pain, shortness of breath, dizziness, hematuria, hematochezia, hemoptysis, or changes in bowel and bladder habits. She lives with her daughter, has a remote smoking history, drinks occasionally, and has never used drugs. Her past surgical history includes a C- section and cataract surgery. Plan: # intractable abdominal pain: Recurrent nausea and nonbloody nonbilious vomiting few times. History unremarkable, no previous surgery, pain/tenderness in the right midclavicular line periumbilical area, U/S unremarkable, CT unremarkable, LR given, muscle relaxant and [place] given as needed. # chronic primary hypercalcemia: Patient has a history of known essential hypercalcemia, with fluid rehydration still remains persistent clinically insignificant, likely idiopathic. # CATHIE due to VMN: IV fluid continue repeat BMP avoid nephrotoxic # isolated persistent monocytosis: Rule out EBV infection if high suspicion # UTI, uncomplicated likely acute cystitis: Leukocyte esterase positive, likely UTI: Blood culture urine culture pending. Continue empiric coverage with IV ceftriaxone. If stable can be discharged home with oral Keflex. # diabetes mellitus type 2: HbA1c 7.1, well-controlled continue SSI a.c. HS and cc diet # uterine calcification: Likely accidental finding, clinically insignificant. Diet: CC diet to continue GI prophylaxis: Pepcid 20 mg p.o. daily, patient uses ranitidine at home. DVT prophylaxis: Levonox sc Bowel regimen: Patient is passing bowel and bladder, no need Barriers to discharge: Medical diagnosis and management in progress. Patient lives with daughter. Independent for ADL. At discharge patient can be taken back to home. PCP: Dr. Nakita Novoa Specialist Relevant To Admission: None Patient care and plan discussed with Dr. Bull Disposition: Patient remains in [facility]. Likely discharge tomorrow if physical exam and other findings remains unremarkable. Can follow up discharge Clinic. Code status: Full code discussed over 29 minutes at bedside. Patient was seen with the daughter at bedside. Plan discussed with: Patient, Other My Orders My Orders Orders - MARTA MATOS Procedure Category Date Status Time Cyclobenzaprine PHA 07/11/24 In Process Tablet (Flexeril 15:45 Ebv Acute Infection LAB 07/12/24 Logged Antibodies 14:15 Date of Service: Jul 11, 2024 Billing Provider: RADHA LEÓN MD Common Visit Codes: [id number] INP/OBS CARE(HIGH) MARTA MATOS Jul 12, 2024 14:26 RADHA LEÓN MD Jul 13, 2024 21:28
--- NOTE | 2024-07-12 15:52 | DVHDSRES ---
Discharge Summary Date of Admission Resident Creating Document: MARTA MATOS RESIDENT Jul 10, 2024 at 21:50 Date of Discharge: Jul 12, 2024 Admitting Diagnosis Intractable abdominal pain Wounds: Labs/Diagnostic Data: Laboratory Results Test 07/12/24 11:05 07/12/24 08:41 07/11/24 05:16 07/10/24 19:47 POC Glucose 126 mg/dl (70-106) White Blood Count 6.8 10^3/uL (4.4-10.8) Red Blood Count 3.56 10^6/uL (4.0-5.20) Hemoglobin 11.0 g/dL (12.2-16.2) Hematocrit 33.1 % (36.0-46.0) Mean Corpuscular Volume 92.9 fL (80.0-100.0) Mean Corpuscular Hemoglobin 30.8 pg (28.0-32.0) Mean Corpuscular Hemoglobin Concent 33.1 g/dL (32.0-36.0) Red Cell Distribution Width 13.7 % (11.8-14.3) Platelet Count 208 10^3/uL (140-450) Mean Platelet Volume 7.8 fL (6.9-10.8) Neutrophils (%) (Auto) 61.1 % (37.0-80.0) Lymphocytes (%) (Auto) 20.8 % (10.0-50.0) Monocytes (%) (Auto) 12.8 % (0.0-12.0) Eosinophils (%) (Auto) 4.4 % (0.0-7.0) Basophils (%) (Auto) 0.9 % (0.0-2.0) Neutrophils # (Auto) 4.2 10 ^3/uL (1.6-8.6) Lymphocytes # (Auto) 1.4 10 ^3/uL (0.4-5.4) Monocytes # (Auto) 0.9 10 ^3/uL (0-1.3) Eosinophils # (Auto) 0.3 10 ^3/uL (0-0.8) Basophils # (Auto) 0.1 10 ^3/uL (0-0.2) Nucleated Red Blood Cells 0.0 % Sodium Level 139 mmol/L (136-145) Potassium Level 4.4 mmol/L (3.5-5.1) Chloride Level 110 mmol/L (98-107) Carbon Dioxide Level 22 mmol/L (20-31) Anion Gap 7 (5-15) Blood Urea Nitrogen 39 mg/dL (9-23) Creatinine 1.51 mg/dL (0.550-1.02) Glomerular Filtration Rate Calc 39 mL/min (>90) BUN/Creatinine Ratio 25.8 (10.0-20.0) Serum Glucose 110 mg/dL (74-106) Calcium Level 10.5 mg/dL (8.7-10.4) Total Bilirubin 0.3 mg/dL (0.2-1.0) Aspartate Amino Transferase (AST) 20 U/L (13-40) Alanine Aminotransferase (ALT) 26 U/L (7-40) Alkaline Phosphatase 111 U/L (46-116) Total Protein 6.2 g/dL (5.7-8.2) Albumin 3.7 g/dL (3.2-4.8) Hemoglobin A1c 7.1 % A1C (<5.7) Magnesium Level 1.7 mg/dL (1.6-2.6) B-Type Natriuretic Peptide 26.58 pg/mL (0-100) Lipase 32 U/L (12-53) Thyroid Stimulating Hormone (TSH) 1.92 uIU/mL (0.55-4.78) Test 07/10/24 18:25 Urine Color Yellow (Yellow) Urine Clarity Clear (Clear) Urine pH 5.0 (5.0-9.0) Urine Specific [place] 1.017 (1.001-1.035) Urine Protein Trace (Negative) Urine Ketones Negative (Negative) Urine Blood Negative /uL (Negative) Urine Nitrite Negative (Negative) Urine Bilirubin Negative (Negative) Urine Urobilinogen Normal mg/dL (Negative) Urine Leukocyte Esterase 2+ /uL (Negative) Urine RBC 3 /hpf (0 - 4) Urine WBC 20 /hpf (0 - 5) Urine Squamous Epithelial Cells Few /hpf (<5) Urine Bacteria None seen /hpf (None Seen) Urine Hyaline Casts Few /lpf (0 - 2) Urine Mucus Few (None Seen) Urine Glucose 2+ mg/dL (Normal) Other Laboratory Tests 07/12/24 08:41 Brief Hx & Hospital Course: A 63-year-old female with a history of bronchial asthma, hypertension, and type 2 diabetes mellitus presented to the emergency department with right upper abdominal pain, nausea, and vomiting for the past two days. The pain, which started a month ago, is intermittent, radiates to the right shoulder, and worsens after meals. She also reports urinary frequency and discomfort, similar to a past UTI. She denies chest pain, shortness of breath, dizziness, hematuria, hematochezia, hemoptysis, or changes in bowel and bladder habits. She lives with her daughter, has a remote smoking history, drinks occasionally, and has never used drugs. Her past surgical history includes a and cataract surgery. Hospital course: Gallbladder ultrasound showed, no cholelithiasis or cholecystitis. No acute findings identified. CT scan showed, Calcifications in the wall of the uterus, there was normal. Patient was treated for the possible gastroenteritis, and the patient was given ceftriaxone, and ringer lactate. Home medication with the continued during hospitalization. Patient also had CATHIE, likely due to VMN which was improved with giving IV fluid. Urinalysis showed sterile pyuria. On 07/12, the patient was feeling better since admission. The patient had no active complaints including abdominal pain. Patient was clinically and hemodynamically stable. Discharge plan discussed with the patient and the patient was discharged. Discharge plan: Cyclobenzaprine 10 mg daily for 7 days Continue home medicine Follow up with the PCP within 1 week after discharge. Operations or Procedures [place] [address] Ph: [phone] DIAGNOSTIC IMAGING Diagnostic Imaging Report : [id number] Signed PATIENT: TAYLA HERNÁNDEZ ACCT: [id number] UNIT: [id number] : 1960 LOC[facility] AGE / SEX: 63 / F ADM STATUS: ADM IN SERVICE 52 ORDERING PHYSICIAN: ESTEFANY ROGERS RESIDENT PROCEDURE(s): ABPL - CT AB PEL WO CON-NO ORAL OR IV REASON: Abdominal pain ORDER NUMBER(s): [id number], ACCESSION NUMBER(s): [id number] Exam: CT CT AB PEL WO CON-NO ORAL OR IV History: Abdominal pain Comparison Study: None available at time of dictation. TECHNIQUE: Multidetector CT of the abdomen was performed from lung bases to pubic symphysis. Imaging was performed without IV contrast. Axial, coronal and sagittal multiplanar reformats were obtained from the axial data set by the technologist. Radiation Dose Information: CT Dose: CTDI volume is 9.32 mGy. Dose-length product is 475.7 mGy*cm FINDINGS: Evaluation of solid organs is limited due to lack of intravenous contrast use. Findings: Lung Bases: No acute or significant lung base finding. Normal heart size. No pleural or pericardial effusion. Liver: The liver is normal in size. No focal lesions. Gallbladder and Biliary Tree: Unremarkable Spleen: Unremarkable Pancreas: The pancreas is grossly normal in appearance. Adrenal Glands: Unremarkable Kidneys: Kidneys are grossly normal without calculi or hydronephrosis. Bladder: Grossly unremarkable for degree of distention. Bowel: The stomach is grossly normal in appearance. Small bowel and colon are normal in caliber and distribution. The appendix is not visualized; however, no secondary findings of acute appendicitis identified. Ascites: Absent Lymphadenopathy: No mesenteric, retroperitoneal or periportal lymphadenopathy. Abdominal Wall and Mesentery: Unremarkable. Vasculature: The visualized abdominal aorta is normal in size and caliber. Evaluation of abdominal and pelvic vessels is limited due to lack of intravenous contrast. Pelvic Organs: Calcifications in the wall of the uterus most likely fibroids. Musculoskeletal: No aggressive focal bony lesions, acute fractures or dislocation. Soft tissues: Unremarkable IMPRESSION: 1. Calcifications in the wall of the uterus. 2. No CT findings of bowel obstruction 3. No nephrolithiasis or hydronephrosis. 4. No calcifications in the gallbladder. Radiation optimization: All CT scans at this facility use at least one of these dose optimization techniques: automated exposure control mA and/or kV adjustment per patient size (includes targeted exams where dose is matched to clinical indication) or iterative reconstruction. ATED BY: GABRIELA ALVARADO Jr., DO DICTATED DATE/TIME: 07/10/242240 SIGNED BY: GABRIELA ALVARADO Jr., DO SIGNED DATE/TIME: 07/10/242240 CC: Condition at Discharge: Good Final Diagnosis/Problems List intractable abdominal pain and nausea and vomiting, likely due to gastroenteritis Gastroenteritis, likely due to Gram-positive Gram-negative/viral chronic primary hypercalcemia Hypoglycemia, likely due to dehydration Ruled out acute cystitis CATHIE due to VMN isolated persistent monocytosis Sterile pyuria Ruled out UTI diabetes mellitus type 2 uterine calcification, likely age-related/degenerative Ruled out cholelithiasis Discharge Disposition: Home Discharge Instruct/Medications Diet: Consistent carbohydrate Activity: No Restrictions, As Tolerated Follow Up/Referral: Follow up with the PCP within 1 week of the discharge. Follow up with the discharge Clinic within 1 week after discharge. Follow up with the Nephrology on outpatient basis. Medications: Continue home medicine Discharge Statement: "Patient was advised to return to the ER or call 911 if any headaches, dizziness, shortness of breath, chest pain, abdominal pain, bleeding, fevers, or worsening of medical condition. Patient was counseled about treatment plan, medications, possible side effects, patientverbalized understanding. All questions were answered to the best of my ability. This discharge took greater then 30 minutes in planning, reviewing documentation, counseling the patient, and discussing with other team members." ASSESSMENT ASSESSMENT Assessment Gastroenteritis Date of Service: Jul 12, 2024 Billing Provider: RADHA LEÓN MD Common Visit Codes: 28864-EVO/OBS DISCH DAY >30min GEOR[place]IA HACKETT RESDIENT Jul 12, 2024 15:52 RADHA LEÓN MD Jul 13, 2024 21:52
[2024-07-13 09:10] LABS: Hepatitis B Surface Antigen Negative (Negative); Hepatitis C Antibody Negative (Negative)
== END 2024-07-12 15:43 | disposition home or self-care (01) | DRG 249 ==
LOC: ER 17:52 → OVERFLOW 21:50 → EAST 23:35
PROVIDERS: ATTEND Internal Medicine
DX: A08.4 Viral intestinal infection, unspecified (principal); N17.0 Acute kidney failure with tubular necrosis; E11.649 Type 2 diabetes mellitus with hypoglycemia without coma; E86.0 Dehydration; D72.821 Monocytosis (symptomatic); N28.9 Disorder of kidney and ureter, unspecified; I10 Essential (primary) hypertension; J45.909 Unspecified asthma, uncomplicated; E83.52 Hypercalcemia
CPT/HCPCS: 36415; 74176; 76705; 80053; 81001; 82570; 82962; 83036; 83690; 83735; 83880; 84156; 84300; 84443; 85025; 86803; 87086; 87340; 93005; G0378; J1815; J2405

== ENCOUNTER 2025-03-01 12:17 | Inpatient (IN) | payer MEDICAID ==
[~2025-03-01] VITALS: Ht 152.4 cm; Wt 74.9 kg
[~2025-03-01 12:17] MED LIST changes: +ATOR-507 PO; -AZIT500T66 PO; +CYCL-611 PO; +EMPA1TAB PO; -FLUT50SP EACHNOSTRI; +HYDR12.59 PO; -IPR002IS NEB; -METF-371 PO; -PRED20TA2 PO
--- NOTE | 2025-03-01 12:49 | ED.PDOC ---
Musculoskeletal HPI Comments This is a 64 year-old female, with a PMHX of DM, High Lipids, HTN, and parathyroidectomy 1 month ago at [place], who presents to the ED with a chief complaint of bilateral leg and feet swelling as of X2 weeks ago. Patient reports a throbbing and tingling sensation to the bilateral lower extremities with associated swelling and shortness of breath. Patient additionally reports an increase in her blood sugar S/P parathyroid surgery X1 month ago. Patient states she is taking Calcium twice daily as prescribed, along with other necessary medications. Patient otherwise denies N/V, pain, dizziness, slurred speech, or fever. Patient has no further complaints or modifying factors at this time. Chief Complaint: Extremity Swelling Time Seen by MD: 12:35 Primary Care Provider: UNK Reviewed Notes: Nurses Notes, Medications, Allergies Allergies: Coded Allergies: NO KNOWN ALLERGIES (Unverified , 11/16/21) Home Meds Active Scripts Cyclobenzaprine HCl (Cyclobenzaprine Hydrochlo) 10 Mg Tab, 10 MG PO HS for 7 Days, #14 TAB 0 Refills Prov:RADHA LEÓN MD 07/11/24 Albuterol Sulfate (Ventolin) 2.5 Mg/0.5 Ml Nb, 2.5 MG NEB Q6HR PRN, #30 INH Prov:LAWANDA AUSTIN MD 11/19/21 Reported Medications Atorvastatin Calcium (Lipitor) 40 Mg Tab, 1 TAB PO DAILY, #30 TAB 5 Refills 07/10/24 Atorvastatin Calcium (Lipitor) 40 Mg Tab, 1 TAB PO DAILY, #30 TAB 5 Refills 07/10/24 Hydrochlorothiazide (Hydrochlorothiazide) 12.5 Mg Cap, 1 CAP PO DAILY, #30 CAP 5 Refills 07/10/24 Empagliflozin (Jardiance) 10 Mg Tab, 10 MG PO DAILY, TAB 07/10/24 Lisinopril (Lisinopril) 20 Mg Tab, 40 MG PO DAILY for 30 Days, MG 11/18/21 Information Source: Patient Mode of Arrival: Ambulatory Location: Bilateral Extremity Location: Foot, Leg Timing: Weeks Prehospital treatment: None Severity: Moderate Pain: None Mechanism: Spontaneous Onset of Symptoms: Spontaneous Symptoms: Swelling DVT Risk Factors: Recent surgery (parathyroid ) Associated signs and symptoms: Other (Swelling to bilateral legs/feet) Past Medical History PAST MEDICAL HISTORY: Asthma, DM, High Lipids, HTN Past Medical History (Other): Parathyroid Disease Surgical History: Surgical History (Other): Parathyroidectomy, cataract surgery AD OPERATIONS INTERN History: No Pertinent AD OPERATIONS INTERN History Family History Family History: Reviewed,noncontributory to illness, Unknown Social History Smoker: Non-Smoker Alcohol: Denies ETOH Use Drugs: Denies Drug Use Lives In: Home Constitutional: denies: chills, diaphoresis, fatigue, fever, malaise, sweats, weakness, others EENTM: denies: blurred vision, double vision, ear bleeding, ear discharge, ear drainage, ear pain, ear ringing, eye pain, eye redness, hearing loss, mouth pain, mouth swelling, nasal discharge, nose bleeding, nose congestion, nose pain, photophobia, tearing, throat pain, throat swelling, voice changes, others Respiratory: denies: cough, hemoptysis, orthopnea, SOB at rest, shortness of breath, SOB with excertion, stridor, wheezing, others Cardiovascular: denies: chest pain, dizzy spells, diaphoresis, Dyspnea on exertion, edema, irregular heart beat, left arm pain, lightheadedness, palpitations, PND, syncope, others Gastrointestinal: denies: abdomen distended, abdominal pain, blood streaked bowels, constipated, diarrhea, dysphagia, difficulty swallowing, hematemesis, melena, nausea, poor appetite, poor fluid intake, rectal bleeding, rectal pain, vomiting, others Genitourinary: denies: abnormal vagina bleeding, burning, dyspareunia, dysuria, flank pain, frequency, hematuria, incontinence, pain, , vagina discharge, urgency, others Neurological: denies: dizziness, fainting, headache, left sided numbness, left sided weakness, numbness, paresthesia, pre-existing deficit, right sided numbness, right sided weakness, seizure, speech problems, tingling, tremors, weakness, others Musculoskeletal: reports: joint swelling, others (Swelling to bilateral legs/feet ); denies: back pain, gout, joint pain, muscle pain, muscle stiffness, neck pain Integumetry: denies: bruises, change in color, change in hair/nails, dryness, laceration, lesions, lumps, rash, wounds, others Allergic/Immunocompromised: denies: Difficulty Healing, Frequent Infections, Hives, Itching, others Hematologic/Lymphatic: denies: anemia, blood clots, easy bleeding, easy bruising, swollen glands, others Endocrine: denies: excessive hunger, excessive sweating, excessive thirst, excessive urination, flushing, intolerance to cold, intolerance to heat, unexpla ined weight gain, unexplained weight loss, others Psychiatric: denies: anxiety, bipolar disorder, depression, hopeless, panic disorder, schizophrenia, sleepless, suicidal, others All Other Systems: Reviewed and Negative Physical Exam General Appearance: No Apparent Distress, Obese HEENT: Other (Pupils and face symmetric. Moist mucous membranes.) Neck: Full Range of Motion, Normal Inspection Respiratory: Lungs Clear, No Accessory Muscle Use, No Respiratory Distress, Normal Breath Sounds Cardiovascular: No JVD, Regular Rate/Rhythm Breast Exam: Deferred Gastrointestinal: Non Tender, Soft Genitalia: Deferred Pelvic: Deferred Rectal: Deferred Extremities: Leg edema, Normal range of motion, Non-tender, Pedal edema Neurologic: Alert (Oriented x4), Normal Affect, Normal Mood, Other (Ambulatory) Cerebellar Function: NOT DONE Reflexes: NOT DONE Skin: Dry, Normal Color, Warm Lymphatic: NOT DONE Was a procedure done? Was a procedure done?: No Differential Diagnosis EXT Differential Diagnosis: Cellulitis, CHF, Deep Vein Thrombosis, Arthritis, Other (Kidney disease, liver disease, venous insufficiency, among others) X-Ray, Labs, Meds, VS Vital Signs Date Time Temp Pulse Resp B/P (MAP) Pulse Ox O2 Delivery O2 Flow Rate FiO2 03/01/25 12:49 Room Air* 0 21 03/01/25 12:20 98.4 76 15 139/81 96 98.4 Lab Test 03/01/25 14:34 03/01/25 13:20 03/01/25 13:16 Range/Units Troponin I High Sensitivity Pending 5 </=34 ng/L Urine Color Pending Urine Clarity Pending Urine pH Pending Urine Specific [place] Pending Urine Protein Pending Urine Ketones Pending Urine Blood Pending Urine Nitrite Pending Urine Bilirubin Pending Urine Urobilinogen Pending Urine Leukocyte Esterase Pending Urine RBC Pending Urine Microscopic WBC Pending Urine Squamous Epithelial Cells Pending Urine Bacteria Pending Urine Glucose Pending White Blood Count 7.9 4.4-10.8 10^3/uL Red Blood Count 4.25 4.0-5.20 10^6/uL Hemoglobin 13.0 12.2-16.2 g/dL Hematocrit 38.1 36.0-46.0 % Mean Corpuscular Volume 89.6 80.0-100.0 fL Mean Corpuscular Hemoglobin 30.6 28.0-32.0 pg Mean Corpuscular Hemoglobin Concent 34.2 32.0-36.0 g/dL Red Cell Distribution Width 14.2 11.8-14.3 % Platelet Count 234 140-450 10^3/uL Mean Platelet Volume 7.4 6.9-10.8 fL Neutrophils (%) (Auto) 56.0 37.0-80.0 % Lymphocytes (%) (Auto) 24.4 10.0-50.0 % Monocytes (%) (Auto) 14.3 H 0.0-12.0 % Eosinophils (%) (Auto) 4.3 0.0-7.0 % Basophils (%) (Auto) 1.0 0.0-2.0 % Neutrophils # (Auto) 4.4 1.6-8.6 10 ^3/uL Lymphocytes # (Auto) 1.9 0.4-5.4 10 ^3/uL Monocytes # (Auto) 1.1 0-1.3 10 ^3/uL Eosinophils # (Auto) 0.3 0-0.8 10 ^3/uL Basophils # (Auto) 0.1 0-0.2 10 ^3/uL Nucleated Red Blood Cells 0.0 % Sodium Level 142 136-145 mmol/L Potassium Level 3.9 3.5-5.1 mmol/L Chloride Level 106 98-107 mmol/L Carbon Dioxide Level 26 20-31 mmol/L Anion Gap 10 5-15 Blood Urea Nitrogen 27 H 9-23 mg/dL Creatinine 1.75 H 0.550-1.02 mg/dL Glomerular Filtration Rate Calc 32 >90 mL/min BUN/Creatinine Ratio 15.4 10.0-20.0 Serum Glucose 179 H 74-106 mg/dL Calcium Level 8.8 8.7-10.4 mg/dL Total Bilirubin 0.3 0.2-1.0 mg/dL Aspartate Amino Transferase (AST) 29 13-40 U/L Alanine Aminotransferase (ALT) 21 7-40 U/L Alkaline Phosphatase 116 46-116 U/L B-Type Natriuretic Peptide 63.08 0-100 pg/mL Total Protein 7.5 5.7-8.2 g/dL Albumin 4.4 3.2-4.8 g/dL [place] [id number] Ph: [phone] DIAGNOSTIC IMAGING Diagnostic Imaging Report : [id number] Signed PATIENT: TAYLA HERNÁNDEZ ACCT: [id number] UNIT: [id number] : 1960 LOC: ER ROOM / BED: / AGE / SEX: 64 / F ADM STATUS: REG ER SERVICE 1234 ORDERING PHYSICIAN: JORDY WATERS MD PROCEDURE(s): BLDVT - BiLat Lower DVT REASON: ble edema ORDER NUMBER(s): [id number], ACCESSION NUMBER(s): [id number] CLINICAL HISTORY: ble edema TECHNIQUE: Color and duplex doppler imagine of the bilateral lower extremity veins was performed. Vessel compression and augmentation if possible was also performed. COMPARISON: BI LOWER DVT on DOS: 11/17/21, BLDVT on DOS: 11/17/21 FINDINGS: Right lower Extremity: Right common femoral vein: Normal compressibility and flow. Right superficial femoral vein: Normal compressibility and flow. Right popliteal vein: Normal compressibility and flow. Proximal calf veins demonstrate flow. Left lower Extremity: Left common femoral vein: Normal compressibility and flow. Left superficial femoral vein: Normal compressibility and flow. Left popliteal vein: Normal compressibility and flow. Proximal calf veins demonstrate flow. IMPRESSION: NO SONOGRAPHIC EVIDENCE FOR DEEP VENOUS THROMBOSIS IN THE BILATERAL LOWER EXTREMITY VEINS. [place] [address] Ph: [phone] DIAGNOSTIC IMAGING Diagnostic Imaging Report : [id number] Signed PATIENT: TAYLA HERNÁNDEZ ACCT: [id number] UNIT: [id number] : 1960 LOC: ER ROOM / BED: / AGE / SEX: 64 / F ADM STATUS: REG ER SERVICE 1234 ORDERING PHYSICIAN: JORDY WATERS MD PROCEDURE(s): CXRP - CHEST PORTABLE REASON: sob ble edema ORDER NUMBER(s): [id number], ACCESSION NUMBER(s): [id number] CHEST RADIOGRAPH Indication: sob ble edema Technique: XY CHEST PORTABLE Comparison: None FINDINGS: The cardiac silhouette is unremarkable. The lungs demonstrate no pulmonary airspace consolidation. The pulmonary vasculature is unremarkable. There is no pleural effusion. There is no pneumothorax. Aortic tortuosity. IMPRESSION: No pulmonary airspace consolidation. X-Ray, Labs, Meds, VS Comment 64-year-old female with a history of hypertension, asthma, type 2 diabetes and parathyroidectomy 1 month ago complaining of bilateral lower extremity swelling and cramping associated with shortness a breath for the past 2 weeks Vitals unremarkable Exam remarkable for 2+ nonpitting edema bilateral feet and legs Rhythm strip independently interpreted by me: Sinus rhythm, rate 76, no ectopy. Chest x-ray Bilateral lower extremity Doppler ultrasound IMPRESSION: NO SONOGRAPHIC EVIDENCE FOR DEEP VENOUS THROMBOSIS IN THE BILATERAL LOWER EXTREMITY VEINS. CBC, CMP, BNP, troponin and UA reviewed, remarkable for BUN 27, creatinine 1.75. Patient treated with the following in the ED: Bumex 0.5 mg IV On re-evaluation, exam is unchanged. Vitals were stable. Of note patient's creatinine has increased (1.4 in 2021, 1.51 in July of 2024). New extremity edema may be due declining kidney function. Plan is to admit the patient for nephrology evaluation. Images Reviewed?: Images reviewed and evaluated by me Time of 1ST Reevaluation: 13:16 Reevaluation 1ST: Unchanged Patient Education/Counseling: Diagnosis, Treatment, Need For Follow Up Family Education/Counseling: No Family Present Medical Screening: No EMC Exist At This Time Departure 1 Departure Time of Disposition: 13:30 Impression: Primary Impression: Lower extremity edema Additional Impression: Acute kidney injury superimposed on CKD Disposition: ADMITTED INPATIENT Admit to: Med Surg Condition: Guarded Critical Care Note Critical Care Time?: No Stability Stability form required: No Heart Score Heart Score: Heart Score Response (Comments) Value History N/A 0 EKG N/A 0 Age N/A 0 Risk Factors N/A 0 Troponin N/A 0 Total 0 I personally scribed for JORDY WATERS MD ([email or web address]) on 03/01/25 at 12:4 9. Electronically submitted by Britta Travis ([email or web address]). I personally scribed for JORDY WATERS MD ([email or web address]) on 03/01/25 at 13:35. Electronically submitted by Britta Travis ([email or web address]). I personally scribed for JORDY WATERS MD ([email or web address]) on 03/01/25 at 13:55. Electronically submitted by Britta Travis ([email or web address]). JORDY WATERS MD Mar 01, 2025 12:49
--- NOTE | 2025-03-01 13:22 | DVH ---
CLINICAL HISTORY: ble edema TECHNIQUE: Color and duplex doppler imagine of the bilateral lower extremity veins was performed. Ves jona compression and augmentation if possible was also performed. COMPARISON: BI LOWER DVT on DOS: 11/17/21, BLDVT on DOS: 11/17/21 FINDINGS: Right lower Extremity: Right common femoral vein: Normal compressibility and flow. Right superficial femoral vein: Normal compressibility and flow. Right popliteal vein: Normal compressibility and flow. Proximal calf veins demonstrate flow. Left lower Extremity: Left common femoral vein: Normal compressibility and flow. Left superficial femoral vein: Normal compressibility and flow. Left popliteal vein: Normal compressibility and flow. Proximal calf veins demonstrate flow. IMPRESSION: NO SONOGRAPHIC EVIDENCE FOR DEEP VENOUS THROMBOSIS IN THE BILATERAL LOWER EXTREMITY VEINS.
--- NOTE | 2025-03-01 13:53 | DVH ---
CHEST RADIOGRAPH Indication: sob ble edema Technique: XY CHEST PORTABLE Comparison: None FINDINGS: The cardiac silhouette is unremarkable. The lungs demonstrate no pulmonary airspace consolidation. Th e pulmonary vasculature is unremarkable. There is no pleural effusion. There is no pneumothorax. Aor tic tortuosity. IMPRESSION: No pulmonary airspace consolidation.
[2025-03-01 13:56] LABS: Hematocrit 38.1 % (36.0-46.0); Hemoglobin 13.0 g/dL (12.2-16.2); Mean Corpuscular Hemoglobin 30.6 pg (28.0-32.0); Mean Corpuscular Volume 89.6 fL (80.0-100.0); Nucleated Red Blood Cells % 0.0 %
[2025-03-01 14:21] LABS: Alanine Aminotransferase 21 U/L (7-40); Albumin 4.4 g/dL (3.2-4.8); Alkaline Phosphatase 116 U/L (46-116); Anion Gap 10 (5-15); BUN/Creatinine Ratio 15.4 (10.0-20.0); Bilirubin, Total 0.3 mg/dL (0.2-1.0); Blood Urea Nitrogen 27 mg/dL (9-23); Calcium 8.8 mg/dL (8.7-10.4); Carbon Dioxide 26 mmol/L (20-31); Chloride 106 mmol/L (98-107); Glucose 179 mg/dL (74-106); Potassium 3.9 mmol/L (3.5-5.1); Sodium 142 mmol/L (136-145); Total Protein 7.5 g/dL (5.7-8.2)
[2025-03-01 15:05] LABS: Urine Budding Yeast OCCASIONAL /hpf (None Seen); Urine Protein, UAD 1+ (Negative)
[2025-03-01] MEDS: BUMETANIDE 1mg/4ml VIAL (0.25mg/ml) IV ONE (15:37)
[2025-03-02] MEDS ORDERED: HYDROcodone-ACET 5/325MG TAB PO PRN (00:15)
[2025-03-02] MEDS ORDERED: ACETAMINOPHEN 325 MG TAB PO PRN (00:15)
[2025-03-02] MEDS ORDERED: DOCUSATE SOD 100 MG CAP PO PRN (00:15)
[2025-03-02] MEDS ORDERED: ONDANSETRON HCL 4 MG/2 ML VIAL IV PRN (00:15)
--- NOTE | 2025-03-02 03:45 | DVHHPRES ---
History of Present Illness Resident Creating Document: JAMIN MCKAY RESIDENT History of Present Illness 64-year-old female with past medical history of pelvic arthritis, sciatica, type 2 diabetes mellitus, essential hypertension and asthma treated with complains of bilateral leg swelling for 2 weeks. She had associated cramps and tingling sensation in the left leg. Patient underwent parathyroidectomy surgery 1 month back. Family history: Hypertension and diabetes mellitus type 2 in mother Social history: Occasional alcohol use, 10 pack years smoking, cannabis oil occasionally, lives with daughter Home medication: Jardiance, amlodipine, atorvastatin, vitamin-D Allergic history: Patient denies Review of Systems Review of Systems General: patient denies fever, fatigue, weaknes, sweating, any recent changes in appetite and weight HEENT: No headaches, visiual changes, hearing loss, tinnitus, nasal congestion and discharge, and sore throat. Cardiovascular: Denies chest pain, palpitations, dyspnea on exertion, orthopnea, or claudication. Respiratory: No cough, and wheezing. Gastrointestinal: Denies nausea, vomiting, dysphagia, odynophagia, heartburn, abdominal pain, flatulence, bloating, diarrhea, constipation, change in stool, or blood in stool. Genitourinary: No dysuria, hematuria, discharge, frequency, urgency, nocturia, incontinence, and urinary retention. Endocrine: No heat or cold intolerance, polydipsia, polyuria, and polyphagia. Neurological: No dizziness, extremity weakness and numbness, tremors, gait disturbance, seizures, and memory impairment. Psychiatric: Denies depression, anxiety,or insomnia. Musculoskeletal: Complains of bilateral pedal edema, tingling in the left lower limb Skin: No rashes, itching, skin lesion, changes in hair, nail, skin texture and breast. Hematologic/Lymphatic: Denies easy bruising, bleeding tendencies, or lymph node enlargement. Allergies: Coded Allergies: NO KNOWN ALLERGIES (Unverified , 11/16/21) Medications Current Medications Medications Dose Ordered Sig/Yon Route Start Time Stop Time Status Last Admin Dose Admin Acetaminophen 325 mg Q4HP PRN PO 03/02/25 00:15 Acetaminophen/ Hydrocodone Bitart 1 tab Q4HP PRN PO 03/02/25 00:15 Ondansetron HCl 4 mg Q4HP PRN IV 03/02/25 00:15 Docusate Sodium 100 mg BIDPRN PRN PO 03/02/25 00:15 Enoxaparin Sodium 40 mg DAILY SC 03/02/25 10:00 UNV Enoxaparin Sodium 30 mg DAILY SC 03/02/25 10:00 Exam Vital Signs Vital Signs Date Time Temp Pulse Resp B/P (MAP) Pulse Ox O2 Delivery O2 Flow Rate FiO2 03/02/25 00:13 98.2 74 18 134/78 (96) 95 98.2 03/01/25 12:49 Room Air* 0 21 Exam General Appearance: Alert, Oriented X3, Cooperative, No acute distress HEENT: Atraumatic, PERRLA, EOMI, Mucous membrane moist/pink Respiratory: Clear to auscultation, Normal air movement Cardiovascular: Regular rate, Normal S1, Normal S2, No murmurs, no chest wall tenderness Abdominal: Normal bowel sounds, Soft, No tenderness, No hepatospenomegaly, No masses Extremities: Bilateral nonpitting pedal edema present Skin: No rashes, No breakdown, No significant lesion Neuro: Normal gait, Normal speech, Strength at 5/5 X4 ext, Normal tone, Sensation intact, Cranial nerves 3-12 NL, Reflexes 2+ Psych/Mental Status: Mental status NL, Mood NL Labs/Xrays Labs Test 03/01/25 14:34 03/01/25 13:20 03/01/25 13:16 Range/Units Troponin I High Sensitivity 4 </=34 ng/L Urine Color Light-yellow Yellow Urine Clarity Clear Clear Urine pH 5.5 5.0-9.0 Urine Specific [place] 1.015 1.001-1.035 Urine Protein 1+ H Negative Urine Ketones Negative Negative Urine Blood Negative Negative /uL Urine Nitrite Negative Negative Urine Bilirubin Negative Negative Urine Urobilinogen Normal Negative mg/dL Urine Leukocyte Esterase 2+ Negative /uL Urine RBC 2 0 - 4 /hpf Urine Microscopic WBC 24 H 0-5 /HPF Urine Squamous Epithelial Cells Few <5 /hpf Urine Bacteria None seen None Seen /hpf Urine Yeast (Budding) Occasional None Seen /hpf Urine Glucose 4+ H Normal mg/dL White Blood Count 7.9 4.4-10.8 10^3/uL Red Blood Count 4.25 4.0-5.20 10^6/uL Hemoglobin 13.0 12.2-16.2 g/dL Hematocrit 38.1 36.0-46.0 % Mean Corpuscular Volume 89.6 80.0-100.0 fL Mean Corpuscular Hemoglobin 30.6 28.0-32.0 pg Mean Corpuscular Hemoglobin Concent 34.2 32.0-36.0 g/dL Red Cell Distribution Width 14.2 11.8-14.3 % Platelet Count 234 140-450 10^3/uL Mean Platelet Volume 7.4 6.9-10.8 fL Neutrophils (%) (Auto) 56.0 37.0-80.0 % Lymphocytes (%) (Auto) 24.4 10.0-50.0 % Monocytes (%) (Auto) 14.3 H 0.0-12.0 % Eosinophils (%) (Auto) 4.3 0.0-7.0 % Basophils (%) (Auto) 1.0 0.0-2.0 % Neutrophils # (Auto) 4.4 1.6-8.6 10 ^3/uL Lymphocytes # (Auto) 1.9 0.4-5.4 10 ^3/uL Monocytes # (Auto) 1.1 0-1.3 10 ^3/uL Eosinophils # (Auto) 0.3 0-0.8 10 ^3/uL Basophils # (Auto) 0.1 0-0.2 10 ^3/uL Nucleated Red Blood Cells 0.0 % Sodium Level 142 136-145 mmol/L Potassium Level 3.9 3.5-5.1 mmol/L Chloride Level 106 98-107 mmol/L Carbon Dioxide Level 26 20-31 mmol/L Anion Gap 10 5-15 Blood Urea Nitrogen 27 H 9-23 mg/dL Creatinine 1.75 H 0.550-1.02 mg/dL Glomerular Filtration Rate Calc 32 >90 mL/min BUN/Creatinine Ratio 15.4 10.0-20.0 Serum Glucose 179 H 74-106 mg/dL Calcium Level 8.8 8.7-10.4 mg/dL Total Bilirubin 0.3 0.2-1.0 mg/dL Aspartate Amino Transferase (AST) 29 13-40 U/L Alanine Aminotransferase (ALT) 21 7-40 U/L Alkaline Phosphatase 116 46-116 U/L B-Type Natriuretic Peptide 63.08 0-100 pg/mL Total Protein 7.5 5.7-8.2 g/dL Albumin 4.4 3.2-4.8 g/dL SEPSIS Sepsis Screen Date sepsis recognized/suspect: Mar 01, 2025 Time Sepsis recognized/suspect: 1222 Recent Procedure: No On Antibiotic Therapy: No Respiratory Rate >20: No Heart Rate >90: No Temp<36 C (96.8 F) or >38.3 C: No SBP <90 or MAP <65 mmHG: No New Acute Mental Status Change: No Is the patient on CPAP, BIPAP,: No Physician Orders Admit (03/02/25 00:13) Allergies (03/02/25 00:13) Code Status (03/02/25 00:13) Acetaminophen Tablet (Tylenol Tablet) (03/02/25 00:15) Hydrocodone-Acet 5/325mg Tab (Ethel 5/32 (03/02/25 00:15) Ondansetron Hcl (Zofran) (03/02/25 00:15) Docusate Sodium Capsule (Colace Capsule) (03/02/25 00:15) Complete Blood Count (03/02/25 04:00) Comprehensive Metabolic Panel (03/02/25 04:00) Condition: Fair (03/02/25 00:13) Enoxaparin Sodium (Lovenox) (03/02/25 10:00) Vital Signs Date Time Temp Pulse Resp B/P (MAP) Pulse Ox O2 Delivery O2 Flow Rate FiO2 03/02/25 00:13 98.2 74 18 134/78 (96) 95 98.2 Assessment/Plan Assessment/Plan #Ruled out DVT-normal Doppler scan #Possible drug-induced lower limb edema- Amlodipine stopped #Acute kidney injury #Isolated monocytosis #Grade 1 obesity #CKD stage 3B #History of parathyroidectomy surgery #Hypocalcemic symptoms with albumin corrected serum calcium levels normal-repeat calcium, PTH, Mg, vitamin-D levels. #History of type 2 diabetes mellitus-reconciled home medications #History of essential hypertension-continue home medications #History of pelvic arthritis #History of sciatica #History of asthma-albuterol prn PCP: [facility] Barriers to discharge: Medical management in progress. Case discussed with Dr. Kaur Code status: Full code. Complex patient care discussion needed total 31 minutes Plan discussed with: Patient My Orders Orders - JAMIN MCKAY RESIDENT Procedure Category Date Status Time Admit ADMIT 03/02/25 Transmitted 00:13 Allergies SARAH 03/02/25 In Process 00:13 Code Status CODE 03/02/25 Transmitted 00:13 Acetaminophen Tablet PHA 03/02/25 In Process (Tylenol Tablet) 00:15 Hydrocodone-Acet PHA 03/02/25 In Process 5/325mg Tab (Ethel 00:15 Ondansetron Hcl PHA 03/02/25 In Process (Zofran) 00:15 Docusate Sodium PHA 03/02/25 In Process Capsule (Colace 00:15 Complete Blood Count LAB 03/02/25 Logged 04:00 Comprehensive LAB 03/02/25 Logged Metabolic Panel 04:00 Condition: Fair SARAH 03/02/25 In Process 00:13 Enoxaparin Sodium PHA 03/02/25 In Process (Lovenox) 10:00 Date of Service: Mar 02, 2025 Billing Provider: DANYELL KAUR MD Common Visit Codes: 81994-OMFQFIK INP/OBS CARE (HIGH) Secondary Visit Codes: 33138-[id number] CARE PLAN 30 MINUTES JAMIN MCKAY RESIDENT Mar 02, 2025 03:15
[2025-03-02 04:06] VITALS: BP_SYST 135; BP_SYST 138; BP_DIAS 81; PULSE 72; RESP 18; TEMP 98.2; O2SAT 97
[2025-03-02] MEDS ORDERED: CHOL20002 PO (04:37)
[2025-03-02 06:19] LABS: Hematocrit 37.7 % (36.0-46.0); Hemoglobin 12.9 g/dL (12.2-16.2); Mean Corpuscular Hemoglobin 30.7 pg (28.0-32.0); Mean Corpuscular Volume 89.8 fL (80.0-100.0); Nucleated Red Blood Cells % 0.0 %
[2025-03-02] MEDS ORDERED: DEXTROSE (50%) 50ML SYRG IV PRN (06:30)
[2025-03-02] MEDS ORDERED: ALBUTEROL SULF 2.5 MG/0.5ML(0.5%) NEB SOLN NEB PRN (06:30)
[2025-03-02 06:37] LABS: Alanine Aminotransferase 22 U/L (7-40); Albumin 4.2 g/dL (3.2-4.8); Alkaline Phosphatase 103 U/L (46-116); Anion Gap 11 (5-15); BUN/Creatinine Ratio 16.0 (10.0-20.0); Carbon Dioxide 24 mmol/L (20-31); Magnesium 1.8 mg/dL (1.6-2.6); Sodium 143 mmol/L (136-145); Total Protein 7.1 g/dL (5.7-8.2)
[2025-03-02 06:38] LABS: Bilirubin, Total 0.4 mg/dL (0.2-1.0)
[2025-03-02 06:39] LABS: Blood Urea Nitrogen 26 mg/dL (9-23); Calcium 7.9 mg/dL (8.7-10.4); Chloride 108 mmol/L (98-107); Glucose 117 mg/dL (74-106); Potassium 3.2 mmol/L (3.5-5.1)
[2025-03-02] MEDS: InsuLIN REG 1unit/0.01ml Soln (100units/ml) SC SCH (07:00)
[2025-03-02] MEDS: ACCU-CHEK COMFORT CURVE STRIP VI SCH (07:11)
[2025-03-02 08:00] VITALS: BP 112/62; PULSE 76; RESP 18; TEMP 98.2; O2SAT 97
[2025-03-02] MEDS ORDERED: ERGOCALCIFEROL 50,000 UNIT(1.25MG) CAP PO SCH (08:00)
[2025-03-02 09:06] VITALS: BP 112/62; PULSE 70; RESP 18; TEMP 98; O2SAT 96
[2025-03-02] MEDS ORDERED: ENOXAPARIN SOD 40 MG/0.4 ML SYRINGE SC SCH (10:00)
[2025-03-02] MEDS ORDERED: CHOLECALCIFEROL (VITD3) 1,000UNIT=25mCg TAB PO SCH (10:00)
[2025-03-02] MEDS ORDERED: EMPAGLIFLOZIN 10 MG TAB PO SCH (10:00)
[2025-03-02] MEDS: CALCIUM CARB 500 MG CHEW TAB PO ONE (11:09)
[2025-03-02] MEDS: ENOXAPARIN SOD 30 MG/0.3 ML SYRINGE SC SCH (11:10)
[2025-03-02] MEDS: LISINOPRIL 5 MG TAB PO STA (11:12)
--- NOTE | 2025-03-02 11:26 | DVHDSRES ---
Discharge Summary Date of Admission Resident Creating Document: JAMIN MCKAY RESIDENT Mar 02, 2025 at 00:13 Date of Discharge: Mar 02, 2025 Admitting Diagnosis Leg swelling, rule out DVT/CHF Labs/Diagnostic Data: Laboratory Results Test 03/02/25 07:08 03/02/25 05:21 03/02/25 04:21 03/01/25 14:34 POC Glucose 128 mg/dl (70-106) White Blood Count 7.9 10^3/uL (4.4-10.8) Red Blood Count 4.20 10^6/uL (4.0-5.20) Hemoglobin 12.9 g/dL (12.2-16.2) Hematocrit 37.7 % (36.0-46.0) Mean Corpuscular Volume 89.8 fL (80.0-100.0) Mean Corpuscular Hemoglobin 30.7 pg (28.0-32.0) Mean Corpuscular Hemoglobin Concent 34.2 g/dL (32.0-36.0) Red Cell Distribution Width 14.4 % (11.8-14.3) Platelet Count 223 10^3/uL (140-450) Mean Platelet Volume 6.9 fL (6.9-10.8) Neutrophils (%) (Auto) 61.1 % (37.0-80.0) Lymphocytes (%) (Auto) 20.6 % (10.0-50.0) Monocytes (%) (Auto) 12.4 % (0.0-12.0) Eosinophils (%) (Auto) 5.1 % (0.0-7.0) Basophils (%) (Auto) 0.8 % (0.0-2.0) Neutrophils # (Auto) 4.8 10 ^3/uL (1.6-8.6) Lymphocytes # (Auto) 1.6 10 ^3/uL (0.4-5.4) Monocytes # (Auto) 1.0 10 ^3/uL (0-1.3) Eosinophils # (Auto) 0.4 10 ^3/uL (0-0.8) Basophils # (Auto) 0.1 10 ^3/uL (0-0.2) Nucleated Red Blood Cells 0.0 % Sodium Level 143 mmol/L (136-145) Potassium Level 3.2 mmol/L (3.5-5.1) Chloride Level 108 mmol/L (98-107) Carbon Dioxide Level 24 mmol/L (20-31) Anion Gap 11 (5-15) Blood Urea Nitrogen 26 mg/dL (9-23) Creatinine 1.63 mg/dL (0.550-1.02) Glomerular Filtration Rate Calc 35 mL/min (>90) BUN/Creatinine Ratio 16.0 (10.0-20.0) Serum Glucose 117 mg/dL (74-106) Hemoglobin A1c 7.7 % A1C (<5.7) Calcium Level 7.9 mg/dL (8.7-10.4) Magnesium Level 1.8 mg/dL (1.6-2.6) Total Bilirubin 0.4 mg/dL (0.2-1.0) Aspartate Amino Transferase (AST) 29 U/L (13-40) Alanine Aminotransferase (ALT) 22 U/L (7-40) Alkaline Phosphatase 103 U/L (46-116) Total Protein 7.1 g/dL (5.7-8.2) Albumin 4.2 g/dL (3.2-4.8) Vitamin D 25-Hydroxy 26.5 ng/mL (30.0-100) Thyroid Stimulating Hormone (TSH) 3.06 uIU/mL (0.55-4.78) Free Thyroxine (T4) Calculated 1.14 ng/dL (0.89-1.76) Parathyroid Hormone (Intact) 70.9 pg/mL (18.4-80.1) Creatine Kinase 224 U/L (34-145) Troponin I High Sensitivity 4 ng/L (</=34) Test 03/01/25 13:20 03/01/25 13:16 Urine Color Light-yellow (Yellow) Urine Clarity Clear (Clear) Urine pH 5.5 (5.0-9.0) Urine Specific [place] 1.015 (1.001-1.035) Urine Protein 1+ (Negative) Urine Ketones Negative (Negative) Urine Blood Negative /uL (Negative) Urine Nitrite Negative (Negative) Urine Bilirubin Negative (Negative) Urine Urobilinogen Normal mg/dL (Negative) Urine Leukocyte Esterase 2+ /uL (Negative) Urine RBC 2 /hpf (0 - 4) Urine Microscopic WBC 24 /HPF (0-5) Urine Squamous Epithelial Cells Few /hpf (<5) Urine Bacteria None seen /hpf (None Seen) Urine Yeast (Budding) Occasional /hpf (None Urine Glucose 4+ mg/dL (Normal) B-Type Natriuretic Peptide 63.08 pg/mL (0-100) Other Laboratory Tests 03/02/25 05:21 Brief Hx & Hospital Course: 64-year-old female with past medical history of pelvic arthritis, sciatica, type 2 diabetes mellitus, essential hypertension and asthma treated with complains of bilateral leg swelling for 2 weeks. She had associated cramps and tingling sensation in the left leg. Patient underwent parathyroidectomy surgery 1 month back. Hospital course-during hospital course patient was treated conservatively. Doppler study of the lower extremity was negative for DVT. Stopped amlodipine. Patient was started on lisinopril 10 mg p.o. daily. Patient is advised to monitor if any angioedema developed. If angiogram metoprolol as patient was advised to stop the medication and called her primary care physician. Patient is being discharged home with lisinopril 10 mg daily, patient was advised to follow up at the discharge clinic on 03/05/2025 with a BMP. Patient's meds were sent to the pharmacy electronically. Patient was hemodynamically stable on discharge. Assessment and plan # bilateral lower extremity edema likely due to amlodipine. Discontinued amlodipine # ruled out CHF #Ruled out DVT #Isolated monocytosis #Grade 1 obesity #CKD stage 3B #History of parathyroidectomy surgery #Hypocalcemia likely secondary to parathyroidectomy # type 2 diabetes mellitus #essential hypertension # pelvic arthritis #sciatica # asthma, no acute exacerbation Plan Continue lisinopril 10 mg p.o. daily Discontinued amlodipine Continue Tums as prescribed with the Please follow up in the discharge clinic on 03/05/2025Saturday with BMP Please wear Piotr socks Leg elevation at night during sleeping Resume other home medications except amlodipine Operations or Procedures [address] [address] Ph: [phone] DIAGNOSTIC IMAGING Diagnostic Imaging Report : [id number] Signed PATIENT: TAYLA HERNÁNDEZ ACCT: [id number] UNIT: [id number] : 1960 LOC: ER ROOM / BED: / AGE / SEX: 64 / F ADM STATUS: REG ER SERVICE 1234 ORDERING PHYSICIAN: JORDY WATERS MD PROCEDURE(s): BLDVT - BiLat Lower DVT REASON: ble edema ORDER NUMBER(s): [id number], ACCESSION NUMBER(s): [id number] CLINICAL HISTORY: ble edema TECHNIQUE: Color and duplex doppler imagine of the bilateral lower extremity veins was performed. Vessel compression and augmentation if possible was also performed. COMPARISON: BI LOWER DVT on DOS: 11/17/21, BLDVT on DOS: 11/17/21 FINDINGS: Right lower Extremity: Right common femoral vein: Normal compressibility and flow. Right superficial femoral vein: Normal compressibility and flow. Right popliteal vein: Normal compressibility and flow. Proximal calf veins demonstrate flow. Left lower Extremity: Left common femoral vein: Normal compressibility and flow. Left superficial femoral vein: Normal compressibility and flow. Left popliteal vein: Normal compressibility and flow. Proximal calf veins demonstrate flow. IMPRESSION: NO SONOGRAPHIC EVIDENCE FOR DEEP VENOUS THROMBOSIS IN THE BILATERAL LOWER EXTREMITY VEINS. ATED BY: JAEL ROJAS MD DICTATED DATE/TIME: 03/01/25 1320 SIGNED BY: JAEL ROJAS MD SIGNED DATE/TIME: 03/01/25 1320 CC: [place] [id number] Ph: [phone] DIAGNOSTIC IMAGING Diagnostic Imaging Report : [id number] Signed PATIENT: TAYLA HERNÁNDEZ ACCT: [id number] UNIT: [id number] : 1960 LOC: ER ROOM / BED: / AGE / SEX: 64 / F ADM STATUS: REG ER SERVICE 1234 ORDERING PHYSICIAN: JORDY WATERS MD PROCEDURE(s): CXRP - CHEST PORTABLE REASON: sob ble edema ORDER NUMBER(s): [id number], ACCESSION NUMBER(s): [id number] CHEST RADIOGRAPH Indication: sob ble edema Technique: XY CHEST PORTABLE Comparison: None FINDINGS: The cardiac silhouette is unremarkable. The lungs demonstrate no pulmonary airspace consolidation. The pulmonary vasculature is unremarkable. There is no pleural effusion. There is no pneumothorax. Aortic tortuosity. IMPRESSION: No pulmonary airspace consolidation. ATED BY: MAGDALENO CAVAZOS MD DICTATED DATE/TIME: 03/01/25 135 SIGNED BY: MAGDALENO CAVAZOS MD SIGNED DATE/TIME: 03/01/25 135 CC: Condition at Discharge: Stable Final Diagnosis/Problems List # bilateral lower extremity edema likely due to amlodipine. Discontinued amlodipine # ruled out CHF #Ruled out DVT #Isolated monocytosis #Grade 1 obesity #CKD stage 3B #History of parathyroidectomy surgery #Hypocalcemia likely secondary to parathyroidectomy # type 2 diabetes mellitus #essential hypertension # pelvic arthritis #sciatica # asthma, no acute exacerbation Discharge Disposition: Home Discharge Instruct/Medications Diet: Consistent carbohydrate, Cardiac 2g Na,low cholest, Renal Follow Up/Referral: As above Medications: As above Scheduled Atorvastatin Calcium (Lipitor), 1 TAB PO DAILY, (Reported) Atorvastatin Calcium (Lipitor), 1 TAB PO DAILY, (Reported) Cholecalciferol (Vitamin D3), 1 CAP PO DAILY, (Reported) Cyclobenzaprine HCl (Cyclobenzaprine Hydrochlo), 10 MG PO HS Empagliflozin (Jardiance), 10 MG PO DAILY, (Reported) Hydrochlorothiazide (Hydrochlorothiazide), 1 CAP PO DAILY, (Reported) Lisinopril (Lisinopril), 40 MG PO DAILY, (Reported) Lisinopril (Lisinopril), 10 MG PO DAILY Scheduled PRN Albuterol Sulfate (Ventolin), 2.5 MG NEB Q6HR PRN Discharge Statement: "Patient was advised to return to the ER or call 911 if any headaches, dizziness, shortness of breath, chest pain, abdominal pain, bleeding, fevers, or worsening of medical condition. Patient was counseled about treatment plan, medications, possible side effects, patientverbalized understanding. All questions were answered to the best of my ability. This discharge took greater then 30 minutes in planning, reviewing documentation, counseling the patient, and discussing with other team members." ASSESSMENT ASSESSMENT Assessment BONITA CHAMBERLAIN RESIDENT Mar 02, 2025 11:26
[2025-03-02 12:11] VITALS: BP 114/59; PULSE 67; RESP 18; TEMP 98; O2SAT 97
[2025-03-02] MEDS ORDERED: LISI-275 PO (12:39)
[2025-03-02 14:04] VITALS: BP 112/62; PULSE 75; RESP 16; TEMP 98.3; O2SAT 97
[2025-03-02] MEDS ORDERED: COLCHICINE 0.6 MG CAP PO SCH (18:00)
[2025-03-02] MEDS ORDERED: CALCIUM CARB 500 MG CHEW TAB PO SCH (22:00)
[2025-03-02] MEDS ORDERED: ATORVASTATIN 20 MG TAB PO SCH (22:00)
--- NOTE | 2025-03-03 09:51 | DVHSR ---
APPROVED REPORT EXAM: Two-dimensional and M-mode echocardiogram with Doppler and color Doppler. Blood Pressure: 135/81 mmHg INDICATION Rule out structural heart disease RISK FACTORS Height: 60, Weight: 165 DIMENSIONS LVDd4.8 (3.8-5.7cm)LA (2D)3.6 (1.9-4.0cm)Aortic Root3.6 (2.0-3.7cm) LVDs3.2 (2.5-4.0cm)LA (MM) (1.9-4.0cm)Aortic Cusp Exc1.9 (1.5-2.0cm) EF (%) 60.0 (55-70%)Rt. Atrium3.7 (1.9-4.0cm)Asc. Aorta cm Mitral Valve MitralMitral Stenosis E wave0.96m/sMV Mean GR.mmHg A wave1.36m/sMV Peak GR.83mmHg E/A ratio0.72D MVAcm2 DECEL [id number] 1/2 [id number] IVRTmsDop MVA2.21cm2 Aortic Valve Aortic ValveAortic Stenosis V11.25m/Celsa Mean GR.6mmHg V21.72m/Celsa Peak GR.12mmHg LVOT Diameter1.9 (1.8-2.4cm)Doppler AVA2.06cm2 Pulmonic Valve V21.00m/s Tricuspid Valve TR Velocity2.51m/s [id number] Conclusion MILD LVH AND MILD LV DIASTOLIC DYSFUNCTION LV EF IS 65% NORMAL VALVES NO EFFUSION NORMAL RV FUNCTION,SIZE AND PRESSURE
[2025-03-03] MEDS ORDERED: LISINOPRIL 5 MG TAB PO SCH (10:00)
== END 2025-03-02 14:46 | disposition home or self-care (01) | DRG 351 ==
LOC: ER 12:17 → OVERFLOW 03-02 00:13 → EAST 03-02 03:53
PROVIDERS: ADMIT Student in an Organized Health Care Education/Training Program; ATTEND Student in an Organized Health Care Education/Training Program
DX: M79.89 Other specified soft tissue disorders (principal); N17.9 Acute kidney failure, unspecified; E83.51 Hypocalcemia; E66.9 Obesity, unspecified; D72.821 Monocytosis (symptomatic); E11.22 Type 2 diabetes mellitus with diabetic chronic kidney disease; M54.30 Sciatica, unspecified side; J45.909 Unspecified asthma, uncomplicated; E78.5 Hyperlipidemia, unspecified; N18.32 Chronic kidney disease, stage 3b; T46.1X5A Adverse effect of calcium-channel blockers, initial encounter; I12.9 Hypertensive chronic kidney disease with stage 1 through stage 4 chronic kidney disease, or unspecified chronic kidney disease; Z68.32 Body mass index [BMI] 32.0-32.9, adult; Z82.49 Family history of ischemic heart disease and other diseases of the circulatory system; Z83.3 Family history of diabetes mellitus; Y92.89 Other specified places as the place of occurrence of the external cause
CPT/HCPCS: 36415; 71045; 80053; 81001; 82306; 82550; 82607; 82746; 82962; 83036; 83735; 83880; 83970; 84439; 84443; 84484; 85025; 93306; 93970; 96374; G0378